=== PATIENT | male | born 1980 | race Caucasian/White ===

== ENCOUNTER 2017-06-12 17:43 | Emergency (ER) | payer BC ==
[~2017-06-12] VITALS: Ht 182.9 cm; Wt 113.4 kg
[~2017-06-12 17:43] MED LIST: CYCL10TA9 PO; DOCU-143 PO; HYDR-3812 PO; PRD20T PO; TRAM50TA2 PO
--- OUTSIDE RECORDS SUMMARY | 2017-06-12 17:49 | XMS REPORT | Clinical Summary ---
Author [facility] Address Unknown Phone Unavailable Care Team Providers Care Compressed Air Pile Driver Operator Name Role Phone PCP Unavailable Source Comments Some departments are not documenting in the electronic medical record. If you do not see the information that you expected, contact Release of Information in the Health Information Management department at [phone] for further assistance in locating additional records[facility] Allergies No Known Allergies Current Medications Prescription Sig. Disp. Refills Start End Date Status Date oxyCODONE/acetaminophen Take 1-2 Tabs by mouth. 30 Tab 08/04/19 Active (PERCOCET; ENDOCET; Max 12 tabs/day 12 ROXICET) 5/325 mg tablet Active Problems Not on file Social History Tobacco Use Types Packs/Day Years Used Date Former Smoker Cigarettes 1 8 Quit: 04/04/2009 Smokeless Tobacco: Never Used Alcohol Use Drinks/Week oz/Week Comments Yes 9 Cans of 5.4 beer Sex Assigned at Date Recorded Not on file Last Filed Vital Signs Vital Sign Reading Time Taken Blood Pressure 116/71 12/19/2012 12:30 PM CDT Pulse 56 12/19/2012 12:30 PM CDT Temperature 36.4 C (97.5 F) 12/19/2012 11:45 AM CDT Respiratory Rate - - Oxygen Saturation 92% 12/19/2012 12:30 PM CDT Inhaled Oxygen - - Concentration Weight 108.9 kg (240 lb) 12/19/2012 7:52 AM CDT Height 185.4 cm (6' 1") 12/19/2012 7:52 AM CDT Body Mass Index 31.66 12/19/2012 7:52 AM CDT Plan of Treatment Health Maintenance Due Date Last Done Comments PHYSICAL (COMPREHENSIVE) 1985 EXAM PERTUSSIS VACCINE 1989 TETANUS VACCINE 1995 INFLUENZA VACCINE 02/02/2017 Results Not on filefrom Last 3 Months
--- OUTSIDE RECORDS SUMMARY | 2017-06-12 17:50 | XMS REPORT ---
Author Author LEATHA ZULETA Organization [employer] Address Unknown Phone Unavailable Care Team Providers Care Diesel Technology Instructor Name Role Phone LEATHA ZULETA CP Unavailable Allergies, Adverse Reactions, Alerts Substance Reaction Event Type N.K.D.A. Info Not Available Non Drug Allergy Problems Problem Type Condition Code Onset Dates Condition Status Assessment Viral illness B34.9 Active Assessment Pain, unspecified R52 Active Medications No Known Medications Procedures Procedure Coding System Code Date Office Visit, Est Pt., Level 3 CPT-4 51307 October 28, 2015 STREP A ASSAY W/OPTIC CPT-4 31915 October 28, 2015 INFLUENZA ASSAY W/OPTIC CPT-4 41646 October 28, 2015 URINALYSIS, AUTO, W/O SCOPE CPT-4 45356 October 28, 2015 Vital Signs Date/Time: October 28, 2015 Temperature 98.1 F Weight 266.8 lbs Height 70 in BMI 38.28 Index Blood Pressure Diastolic 76 mmHg Blood Pressure Systolic 118 mmHg Cardiac Monitoring Heart Rate 72 bpm Results Name Result Date Reference Range Unit Abnormality Flag UA LONG DIP (IN HOUSE) ----pH 6.0 20151028 ----BLO Negative 20151028 ----Clarity Clear 20151028 ----Color Yellow 20151028 ----Exp date 20151028 ----Odor Strong 20151028 ----Lot # [id number] ----GLU Negative 20151028 ----BONITA Negative 20151028 ----ANITA Negative 20151028 ----NIT Negative 20151028 ----KET Negative 20151028 ----Lot # [id number] 20151028 ----SG >=1.030 20151028 ----URO 2.0 20151028 ----Exp date 20151028 ----Protein Negative 20151028 INFLUENZA A & B (IN HOUSE) ----Exp date 2018-01-2920151028 ----INFLUENZA A Negative 20151028 ----INFLUENZA B Negative 20151028 ----Control + 20151028 ----Lot # [id number] STREP A (IN HOUSE) ----Exp date 20151028 ----Control + 20151028 ----Lot # [id number] 20151028 ----STREP A Negative 20151028 Summary Purpose [employer] Submission
--- NOTE | 2017-06-12 18:48 | ED Chest Pain ---
General Chief Complaint: Chest Wall/Rib Pain Stated Complaint: RIB PAIN Nursing Triage Note: AMBULATORY TO ER WITH REPORTS OF RIGHT CHEST WALL PAIN SINCE WEDNESDAY. PATIENT REPORTS THAT HE HAS NO KNOWN CAUSE, OR KNOWN INJURY. DENIES PAIN WITH INSPIRATION OR PALPATION. Nursing Sepsis Screen: No Definite Risk Source: patient, family Exam Limitations: no limitations History of Present Illness Time seen by provider: 18:10 Initial Comments Here with complaint of central anterior chest discomfort and more significant right posterior chest wall pain, worse with deep breathing. No other worsening factors and no relieving factors. Intermittent shortness of breath since last week. Denies nausea or vomiting but does have some difficulties with bowel movements. States the bowel movements can be hard on some days and loose on others. Does report some blood with stool over the last 3 weeks. States sometimes there is blood without stool. Timing/Duration: 3-4 days Severity/Quality: moderate, aching Location: central Radiation: back Activities at Onset: none Prior CP/Workup: no prior chest pain ASA po SONOGRAM TECHNICIAN: No NTG SL SONOGRAM TECHNICIAN: No Associated Symptoms: No abdominal pain, No fatigue, No nausea/vomiting, shortness of breath, No weakness Allergies and Home Medications Allergies Coded Allergies: No Known Drug Allergies (Unverified , 03/06/16) Home Medications No Active Prescriptions or Reported Meds Review of Systems Constitutional: see HPI, No chills, No fever EENTM: No Symptoms Reported Respiratory: See HPI, Cough, Shortness of Air Cardiovascular: Chest Pain, Denies Edema Gastrointestinal: Constipated, Denies Nausea, Denies Vomiting Genitourinary: No Symptoms Reported Musculoskeletal: see HPI Skin: no symptoms reported Psychiatric/Neurological: No Symptoms Reported All Other Systems Reviewed Negative Unless Noted: Yes Past Swrrkrn-Yemote-Wdoalp Hx Patient Social History Alcohol Use: Occasionally Uses Number of Drinks Today: AA Alcohol Beverage of Choice: Beer Recreational Drug Use: No Smoking Status: Former Smoker Type Used: Cigarettes Former Smoker, Quit: Mar 06, 2011 2nd Hand Smoke Exposure: No Recent Foreign Travel: No Contact w/Someone Who Travel: No Recent Infectious Disease Expo: No Recent Hopitalizations: No Physical Abuse: No Sexual Abuse: No Mistreated: No Fear: No Immunizations Up To Date Tetanus Booster (TDap): Unknown Seasonal Allergies Seasonal Allergies: No Surgeries History of Surgeries: Yes (LT ARM R/T VASCULAR INSUFFICIENCY, LEFT LEG SET, RIGHT SHOULDER) Surgeries: Vascular Surgery Respiratory History of Respiratory Disorde: No Cardiovascular History of Cardiac Disorders: No Neurological History of Neurological Disord: Yes (numbness lt anterior thigh x12 years & rt 3-5 fingers for "years") Reproductive System Hx Reproductive Disorders: No Sexually Transmitted Disease: No HIV/AIDS: No Gastrointestinal History of Gastrointestinal Di: Yes (UMBILICAL HERNIA SURERY) Gastrointestinal Disorders: Gastroesophageal Reflux Musculoskeletal History of Musculoskeletal Dis: No Endocrine History of Endocrine Disorders: No HEENT Loss of Vision: Denies Hearing Impairment: Denies Cancer History of Cancer: No Psychosocial History of Psychiatric Problem: No Suicide Risk Score: 0 Integumentary History of Skin or Integumenta: No Blood Transfusions History of Blood Disorders: No Adverse Reaction to a Blood Tr: No (N/A) Reviewed Nursing Assessment Reviewed/Agree w Nursing PMH: Yes Family Medical History Significant Family History: No Pertinent Family Hx Family Medial History: Patient reports no known family medical history. Physical Exam Vital Signs Vital Sign - Last 12Hours 06/12/17 18:13 Temp 98.4 Pulse 77 Resp 18 B/P (MAP) 141/89 (106) Pulse Ox 96 O2 Delivery Room Air Capillary Refill : Less Than 3 Seconds General Appearance: No Apparent Distress, WD/WN HEENT: PERRL/EOMI, Pharynx Normal Neck: Non Tender, Supple Respiratory: Lungs Clear, Normal Breath Sounds Cardiovascular: Regular Rate, Rhythm, No Murmur Gastrointestinal: Non Tender, Soft Genital/Rectal: Normal Rectal Exam, Heme Negative Stool Extremity: Normal Inspection, Normal Range of Motion, Non Tender, No Calf Tenderness Neurologic/Psychiatric: Alert, Oriented x3, No Motor/Sensory Deficits Skin: Normal Color, Warm/Dry Progress/Results/Core Measures Results/Orders Lab Results Laboratory Tests Test 06/12/17 18:40 Range/Units White Blood Count 5.4 4.3-11.0 10^3/uL Red Blood Count 4.90 4.35-5.85 10^6/uL Hemoglobin 15.5 13.3-17.7 G/DL Hematocrit 46 40-54 % Mean Corpuscular Volume 93 80-99 FL Mean Corpuscular Hemoglobin 32 25-34 PG Mean Corpuscular Hemoglobin Concent 34 32-36 G/DL Red Cell Distribution Width 12.7 10.0-14.5 % Platelet Count 220 130-400 10^3/uL Mean Platelet Volume 10.0 7.4-10.4 FL Neutrophils (%) (Auto) 52 42-75 % Lymphocytes (%) (Auto) 35 12-44 % Monocytes (%) (Auto) 7 0-12 % Eosinophils (%) (Auto) 5 0-10 % Basophils (%) (Auto) 0 0-10 % Neutrophils # (Auto) 2.8 1.8-7.8 X 10^3 Lymphocytes # (Auto) 1.9 1.0-4.0 X 10^3 Monocytes # (Auto) 0.4 0.0-1.0 X 10^3 Eosinophils # (Auto) 0.3 0.0-0.3 10^3/uL Basophils # (Auto) 0.0 0.0-0.1 10^3/uL D-Dimer 0.29 0.00-0.49 UG/ML Sodium Level 142 135-145 MMOL/L Potassium Level 4.1 3.6-5.0 MMOL/L Chloride Level 105 98-107 MMOL/L Carbon Dioxide Level 27 21-32 MMOL/L Anion Gap 10 5-14 MMOL/L Blood Urea Nitrogen 9 7-18 MG/DL Creatinine 1.05 0.60-1.30 MG/DL Estimat Glomerular Filtration Rate > 60 BUN/Creatinine Ratio 9 Glucose Level 96 70-105 MG/DL Calcium Level 9.7 8.5-10.1 MG/DL Total Bilirubin 0.7 0.1-1.0 MG/DL Aspartate Amino Transf (AST/SGOT) 41 H 5-34 U/L Alanine Aminotransferase (ALT/SGPT) 55 0-55 U/L Alkaline Phosphatase 77 40-136 U/L Troponin I < 0.30 <0.30 NG/ML C-Reactive Protein High Sensitivity 0.16 0.00-0.50 MG/DL Total Protein 7.6 6.4-8.2 GM/DL Albumin 4.2 3.2-4.5 GM/DL My Orders Orders - JAYDEN MOJICA MD Continuous Ekg Monitoring (06/12/17 18:26) Ekg Tracing (06/12/17 18:26) Cbc With Automated Diff (06/12/17 18:26) Comprehensive Metabolic Panel (06/12/17 18:26) Hs C Reactive Protein (06/12/17 18:26) Troponin I (06/12/17 18:26) Fibrin Degradation Products (06/12/17 18:26) Saline Lock/Iv-Start (06/12/17 18:26) Chest Pa/Lat (2 View) (06/12/17 18:26) Ketorolac Injection (Toradol Injection) (06/12/17 20:21) Fecal Occult Bedside (06/12/17 20:33) Vital Signs/I&O Vital Sign - Last 12Hours 06/12/17 18:13 Temp 98.4 Pulse 77 Resp 18 B/P (MAP) 141/89 (106) Pulse Ox 96 O2 Delivery Room Air Blood Pressure Mean: 106 Progress Note : Progress Note Seen and evaluated. IV, labs, chest x-ray, EKG ordered. Monitor patient. Toradol 30 mg IV for pain. 2051: Chest x-ray does not show any significant findings and labs are negative. Hemoccult stool was negative. No obvious mass noted on exam. Discharged home with return precautions. Patient verbalize understanding instructions and agreement with plan. ECG Initial ECG Impression Date: Jun 12, 2017 Initial ECG Impression Time: 18:31 Initial ECG Rate: 69 Initial ECG Rhythm: Normal Sinus Comment Sinus rhythm with normal axis. No evidence of ST elevation IN. No previous available for comparison. Interpreted by me. T waves flat in the inferior and lateral leads. Departure Impression Impression: Primary Impression: Chest wall pain Disposition: 01 HOME, SELF-CARE Condition: Improved Departure-Patient Inst. Decision time for Depature: 20:55 Referrals: JERICHO PASTRANA MD NO,LOCAL PHYSICIAN (PCP) Primary Care Physician TAYLA SO MD Patient Instructions: Chest Pain (DC) Add. Discharge Instructions: All discharge instructions reviewed with patient and/or family. Voiced understanding. You may take ibuprofen 800 mg every 8 hours as needed for pain. You may take Tylenol 1000 mg every 8 hours as needed for pain. You may use aybd-gfe-oihttig preparations such as icy hot with lidocaine, Aspercreme with lidocaine or salonpas with lidocaine per package directions. Return for worse pain, fever, vomiting, weakness, breathing problems or other concerns as needed. Follow-up with for recheck and further evaluation. You may use the doctors listed or one of your choosing. Scripts No Active Prescriptions or Reported Meds JAYDEN MOJICA MD Jun 12, 2017 18:48
[2017-06-12 18:50] LABS: BASOPHILS % (AUTO) 0 % (0-10); EOSINOPHILS # (AUTO) 0.3 10^3/uL (0.0-0.3); EOSINOPHILS % (AUTO) 5 % (0-10); LYMPHOCYTES # (AUTO) 1.9 X 10^3 (1.0-4.0); LYMPHOCYTES % (AUTO) 35 % (12-44); MEAN CORPUSCULAR HEMOGLOBIN 32 PG (25-34); MEAN CORPUSCULAR HGB CONC 34 G/DL (32-36); MEAN CORPUSCULAR VOLUME 93 FL (80-99); MONOCYTES # (AUTO) 0.4 X 10^3 (0.0-1.0); MONOCYTES % (AUTO) 7 % (0-12); NEUTROPHILS # (AUTO) 2.8 X 10^3 (1.8-7.8); NEUTROPHILS % (AUTO) 52 % (42-75); PLATELET COUNT 220 10^3/uL (130-400); RED CELL DISTRIBUTION WIDTH 12.7 % (10.0-14.5); WHITE BLOOD COUNT 5.4 10^3/uL (4.3-11.0)
[2017-06-12 19:06] LABS: ALANINE AMINOTRANSFERASE 55 U/L (0-55); ALBUMIN 4.2 GM/DL (3.2-4.5); ANION GAP 10 MMOL/L (5-14); ASPARTATE AMINO TRANSFERASE 41 U/L (5-34); BILIRUBIN,TOTAL 0.7 MG/DL (0.1-1.0); BLOOD UREA NITROGEN 9 MG/DL (7-18); BUN/CREATININE RATIO 9; CALCIUM 9.7 MG/DL (8.5-10.1); CARBON DIOXIDE 27 MMOL/L (21-32); CHLORIDE 105 MMOL/L (98-107); CREATININE SERUM 1.05 MG/DL (0.60-1.30); GFR ESTIMATED > 60; GLUCOSE 96 MG/DL (70-105); POTASSIUM 4.1 MMOL/L (3.6-5.0); SODIUM 142 MMOL/L (135-145); TOTAL PROTEIN 7.6 GM/DL (6.4-8.2); hs C REACTIVE PROTEIN 0.16 MG/DL (0.00-0.50)
[2017-06-12 19:12] LABS: TROPONIN I < 0.30 NG/ML (<0.30)
[2017-06-12] MEDS ORDERED: KETOROLAC 30 MG/ML VIAL IVP STA (20:21)
[2017-06-12 21:07] VITALS: BP 121/71
--- NOTE | 2017-06-12 23:12 | Diagnostic Imaging Report ---
Patient History: Right chest wall pain for 3 days. No known injury. Technique: 2 views of the chest Comparison: None FINDINGS: Lung volumes are normal. No focal consolidation seen. No pleural effusion or pneumothorax is identified. The cardiomediastinal silhouette is normal in size and contour. The osseous structures demonstrate no acute abnormality. IMPRESSION: No acute pulmonary abnormality seen. No displaced rib fractures identified. Dictated by: Dictated on workstation # [id number]
== END 2017-06-12 21:07 | disposition home or self-care (01) ==
LOC: EDUNIT# 17:43 → ER 17:45
DX: R07.89 Other chest pain (principal); K21.9 Gastro-esophageal reflux disease without esophagitis; Z98.890 Other specified postprocedural states; Z87.891 Personal history of nicotine dependence
CPT/HCPCS: 36415; 71020; 80053; 84484; 85025; 85379; 86141

== ENCOUNTER 2017-06-14 15:12 | Emergency (ER) | payer BC ==
[~2017-06-14] VITALS: Ht 182.9 cm; Wt 113.4 kg
--- NOTE | 2017-06-14 15:21 | ED Chest Pain ---
General Stated Complaint: CHEST PAIN Source: patient Exam Limitations: no limitations History of Present Illness Time seen by provider: 15:20 Initial Comments To ER with intense squeezing epigastric/sternal/right sternal border chest pain that began while he was sitting on the couch 20 minutes prior to arrival. He was also here in the emergency room 2 days ago for pain beneath the right shoulder blade without significant findings and was told this was musculoskeletal. Has no history of heart disease. Timing/Duration: constant Severity/Quality: moderate Location: central Radiation: no radiation Activities at Onset: none ASA po BONE CRUSHER: No NTG SL BONE CRUSHER: No Allergies and Home Medications Allergies Coded Allergies: No Known Drug Allergies (Unverified , 03/06/16) Home Medications Acetaminophen with Codeine 1 Each Tablet, (Reported) Review of Systems Constitutional: see HPI, No chills, No fever EENTM: No Symptoms Reported Respiratory: See HPI, Cough, Shortness of Air, SOA With Exertion, SOA at Rest Cardiovascular: See HPI, Chest Pain Gastrointestinal: See HPI, Abdominal Pain Genitourinary: No Symptoms Reported Musculoskeletal: no symptoms reported Skin: no symptoms reported Psychiatric/Neurological: No Symptoms Reported Endocrine: No Symptoms Reported Hematologic/Lymphatic: No Symptoms Reported Past Puuaynu-Nfslzv-Cicdnq Hx Patient Social History Alcohol Beverage of Choice: Beer Type Used: Cigarettes Former Smoker, Quit: Mar 06, 2011 2nd Hand Smoke Exposure: No Recent Foreign Travel: No Contact w/Someone Who Travel: No Recent Hopitalizations: No Immunizations Up To Date Tetanus Booster (TDap): Unknown Seasonal Allergies Seasonal Allergies: No Surgeries History of Surgeries: Yes (LT ARM R/T VASCULAR INSUFFICIENCY, LEFT LEG SET, RIGHT SHOULDER) Surgeries: Vascular Surgery Respiratory History of Respiratory Disorde: No Cardiovascular History of Cardiac Disorders: No Neurological History of Neurological Disord: Yes (numbness lt anterior thigh x12 years & rt 3-5 fingers for "years") Reproductive System Hx Reproductive Disorders: No Sexually Transmitted Disease: No HIV/AIDS: No Gastrointestinal History of Gastrointestinal Di: Yes (UMBILICAL HERNIA SURERY) Gastrointestinal Disorders: Gastroesophageal Reflux Musculoskeletal History of Musculoskeletal Dis: No Endocrine History of Endocrine Disorders: No HEENT Loss of Vision: Denies Hearing Impairment: Denies Cancer History of Cancer: No Psychosocial History of Psychiatric Problem: No Integumentary History of Skin or Integumenta: No Blood Transfusions History of Blood Disorders: No Adverse Reaction to a Blood Tr: No (N/A) Family Medical History Significant Family History: No Pertinent Family Hx Family Medial History: Patient reports no known family medical history. Physical Exam Vital Signs Vital Sign - Last 12Hours 06/14/17 15:24 Temp 98.1 Pulse 83 Resp 24 B/P (MAP) 153/98 (116) Pulse Ox 98 O2 Delivery Room Air Capillary Refill : General Appearance: No Apparent Distress, WD/WN HEENT: PERRL/EOMI, TMs Normal Neck: Full Range of Motion, Normal Inspection Respiratory: Lungs Clear, Normal Breath Sounds, No Accessory Muscle Use, No Respiratory Distress Cardiovascular: Regular Rate, Rhythm, Normal Peripheral Pulses Gastrointestinal: Normal Bowel Sounds, Non Tender, Soft Extremity: Normal Capillary Refill, Normal Inspection Neurologic/Psychiatric: Alert, Oriented x3, No Motor/Sensory Deficits Skin: Normal Color, Warm/Dry Progress/Results/Core Measures Results/Orders Lab Results Laboratory Tests Test 06/14/17 15:25 Range/Units White Blood Count 6.5 4.3-11.0 10^3/uL Red Blood Count 4.82 4.35-5.85 10^6/uL Hemoglobin 15.4 13.3-17.7 G/DL Hematocrit 45 40-54 % Mean Corpuscular Volume 93 80-99 FL Mean Corpuscular Hemoglobin 32 25-34 PG Mean Corpuscular Hemoglobin Concent 34 32-36 G/DL Red Cell Distribution Width 12.7 10.0-14.5 % Platelet Count 217 130-400 10^3/uL Mean Platelet Volume 9.8 7.4-10.4 FL Neutrophils (%) (Auto) 50 42-75 % Lymphocytes (%) (Auto) 39 12-44 % Monocytes (%) (Auto) 7 0-12 % Eosinophils (%) (Auto) 3 0-10 % Basophils (%) (Auto) 0 0-10 % Neutrophils # (Auto) 3.3 1.8-7.8 X 10^3 Lymphocytes # (Auto) 2.5 1.0-4.0 X 10^3 Monocytes # (Auto) 0.4 0.0-1.0 X 10^3 Eosinophils # (Auto) 0.2 0.0-0.3 10^3/uL Basophils # (Auto) 0.0 0.0-0.1 10^3/uL Prothrombin Time 12.1 L 12.2-14.7 SEC INR Comment 0.9 0.8-1.4 Activated Partial Thromboplast Time 27 24-35 SEC Sodium Level 142 135-145 MMOL/L Potassium Level 3.2 L 3.6-5.0 MMOL/L Chloride Level 105 98-107 MMOL/L Carbon Dioxide Level 28 21-32 MMOL/L Anion Gap 9 5-14 MMOL/L Blood Urea Nitrogen 9 7-18 MG/DL Creatinine 1.03 0.60-1.30 MG/DL Estimat Glomerular Filtration Rate > 60 BUN/Creatinine Ratio 9 Glucose Level 104 70-105 MG/DL Calcium Level 9.9 8.5-10.1 MG/DL Magnesium Level 2.1 1.8-2.4 MG/DL Total Bilirubin 1.2 H 0.1-1.0 MG/DL Aspartate Amino Transf (AST/SGOT) 67 H 5-34 U/L Alanine Aminotransferase (ALT/SGPT) 74 H 0-55 U/L Alkaline Phosphatase 82 40-136 U/L Myoglobin 50.4 10.0-92.0 NG/ML Troponin I < 0.30 <0.30 NG/ML Total Protein 7.7 6.4-8.2 GM/DL Albumin 4.3 3.2-4.5 GM/DL Lipase 15 8-78 U/L Serum Alcohol < 10 <10 MG/DL My Orders Orders - COBY WALDEN APRN Cbc With Automated Diff (06/14/17 15:18) Magnesium (06/14/17 15:18) Chest 1 View, Ap/Pa Only (06/14/17 15:18) Ekg Tracing (06/14/17 15:18) Cardiac Profile 1 (06/14/17 15:18) Comprehensive Metabolic Panel (06/14/17 15:18) Myoglobin Serum (06/14/17 15:18) Protime With Inr (06/14/17 15:18) Partial Thromboplastin Time (06/14/17 15:18) O2 (06/14/17 15:18) Monitor-Rhythm Ecg Trace Only (06/14/17 15:18) Lipid Panel (06/15/17 06:00) Aspirin Chewable Tablet (Baby Aspirin Ch (06/14/17 15:30) Saline Lock/Iv-Start (06/14/17 15:18) Antacid Suspension (Mylanta Suspension (06/14/17 15:30) Lidocaine 2% Viscous 15 Ml (Xylocaine Vi (06/14/17 15:30) Ua Culture If Indicated (06/14/17 15:55) Drug Screen Stat (Urine) (06/14/17 15:55) Lipase (06/14/17 15:57) Iohexol Injection (Omnipaque 350 Mg/Ml 1 (06/14/17 16:00) Sodium Chloride Flush (Catheter Flush Sy (06/14/17 16:00) Ns (Ivpb) (Sodium Chloride 0.9% Ivpb Bag (06/14/17 16:00) Ct Angio Chest/Abd W (06/14/17 15:59) Iohexol Injection (Omnipaque 350 Mg/Ml 1 (06/14/17 16:15) Ns (Ivpb) (Sodium Chloride 0.9% Ivpb Bag (06/14/17 16:15) Alcohol (06/14/17 16:52) Medications Given in ED Current Medications Medications Dose Ordered Sig/Arron Route Start Time Stop Time Status Last Admin Dose Admin Al Hydrox/Mg Hydrox/Simethicone 30 ml ONCE ONCE PO 06/14/17 15:30 06/14/17 15:31 DC 06/14/17 15:38 30 ML Aspirin 324 mg ONCE ONCE PO 06/14/17 15:30 06/14/17 15:31 DC 06/14/17 15:37 324 MG Iohexol 125 ml ONCE ONCE IV 06/14/17 16:00 06/14/17 16:01 DC 06/14/17 16:23 150 ML Lidocaine HCl 15 ml ONCE ONCE PO 06/14/17 15:30 06/14/17 15:31 DC 06/14/17 15:38 15 ML Sodium Chloride 100 ml ONCE ONCE IV 06/14/17 16:00 06/14/17 16:01 DC 06/14/17 16:23 100 ML Vital Signs/I&O Vital Sign - Last 12Hours 06/14/17 06/14/17 15:24 15:24 Temp 98.1 Pulse 83 Resp 24 B/P (MAP) 153/98 (116) Pulse Ox 98 O2 Delivery Room Air Diagnostic Imaging Diagonstic Imaging: CT Comments NAME: JOSH GILLIS [facility] REC#: [id number] PT STATUS: REG ER : 1980 PHYSICIAN: COBY WALDEN APRN ADMIT DATE: 06/14/17/ER Draft Date of Exam:06/14/17 CT ANGIO CHEST/ABD W PROCEDURE: CT angiography of the abdomen and chest with and without contrast. TECHNIQUE: After intravenous administration of contrast, thin section axial CT angiography of the abdomen and chest were obtained. Multiple MIP reformats were provided. INDICATION: Chest pain. Shortness of breath. Right-sided abdominal pain. CONTRAST: 150 mL of Omnipaque 350 was administered intravenously. FINDINGS: CTA CHEST: The pulmonary arteries are well opacified with no filling defects to suggest pulmonary embolism. The thoracic aorta is normal in caliber. There is no mediastinal mass. No significant lymphadenopathy in the mediastinum or elaine. No significant lymphadenopathy in the axilla. The lungs demonstrate no significant consolidation, mass, or suspicious nodule. No significant pleural or pericardial effusion is seen. The osseous structures appear grossly unremarkable. CT ABDOMEN: The liver demonstrates mild intrahepatic biliary dilatation. Cholecystectomy clips are seen. The CBD is 1.3 cm in caliber. There is a 3 mm calcification seen near the ampulla of Vater, suggestive of a distal CBD stone. The spleen is not enlarged. The adrenal glands and pancreas appear unremarkable. The kidneys have symmetric enhancement . There is no hydronephrosis. The abdominal aorta is normal in caliber. No periaortic significantly enlarged lymph node is seen. No fluid collection in the abdomen is identified. IMPRESSION: CTA CHEST: No PE or aortic dissection. CT ABDOMEN: Mild dilatation of the intra and extrahepatic bile ducts with a 3 mm calcified stone appears to be present at the ampulla of Vater level. ERCP evaluation is recommended. The findings were discussed with Coby Walden, the ER physician commercial lines account assistant taking care of the patient at the time of dictation. Dictated on workstation # [id number] Dict: 06/14/17 165 Trans: 06/14/17 1705 [id number] Interpreted by: BALAJI DESAI MD Electronically signed by: Departure Communication (Admissions) Progress Notes 1557-PAIN DOWN TO 4 OUT OF 10, WAS 910. THIS FOLLOWS ADMINISTRATION OF GI COCKTAIL 1713- I discussed the CT findings and lab findings with Dr. Mcdonough from gastroenterology at [facility]. He will see the patient tomorrow for ERCP. Patient should present to the admitted and discharged lounge at 130 or 2 p.m. He should have a clear liquid breakfast, no lunch. I will prophylactically put him on Cipro and Flagyl Impression Impression: Primary Impression: Choledocholithiasis with obstruction Disposition: 01 HOME, SELF-CARE Condition: Stable Departure-Patient Inst. Decision time for Depature: 17:13 Referrals: NO,LOCAL PHYSICIAN (PCP/Family) Primary Care Physician Patient Instructions: NO INSTRUCTIONS GIVEN Add. Discharge Instructions: 1. You may eat a light clear liquid breakfast tomorrow morning. Take the pain medication and the nausea medication as needed. Take the antibiotics as directed. Show up at the admitting lounge at [facility] tomorrow between 130 and 2 p.m. with plans to have ERCP procedure done by Dr. Baird Scripts Hydrocodone/Acetaminophen ([place] 5-325 Tablet) 1 Each Tablet 1 EACH PO Q6H Y for PAIN-MODERATE TO SEVERE, #10 TAB Prov: COBY WALDEN APRN 06/14/17 Ondansetron (Zofran Odt) 8 Mg Tab.rapdis 8 MG PO Q6H, #10 TAB Prov: COBY WALDEN APRN 06/14/17 Metronidazole (Flagyl) 500 Mg Tablet 500 MG PO TID, #15 TAB Prov: COBY WALDEN APRN 06/14/17 Ciprofloxacin HCl (Cipro) 500 Mg Tablet 500 MG PO BID, #10 TAB Prov: COBY WALDEN APRN 06/14/17 COBY WALDEN APRN Jun 14, 2017 15:21
[2017-06-14] MEDS ORDERED: ASPIRIN 81 MG CHEW (CHILDREN'S ASA) PO ONE (15:30)
[2017-06-14] MEDS ORDERED: ANTACID SUSP 30 ML UDC (MYLANTA) PO ONE (15:30)
[2017-06-14] MEDS ORDERED: LIDOCAINE 2% VISCOUS 15 ML UDC PO ONE (15:30)
[2017-06-14] MEDS ORDERED: ACET1TAB43 (15:32)
[2017-06-14 15:35] LABS: BASOPHILS % (AUTO) 0 % (0-10); EOSINOPHILS # (AUTO) 0.2 10^3/uL (0.0-0.3); EOSINOPHILS % (AUTO) 3 % (0-10); LYMPHOCYTES # (AUTO) 2.5 X 10^3 (1.0-4.0); LYMPHOCYTES % (AUTO) 39 % (12-44); MEAN CORPUSCULAR HEMOGLOBIN 32 PG (25-34); MEAN CORPUSCULAR HGB CONC 34 G/DL (32-36); MEAN CORPUSCULAR VOLUME 93 FL (80-99); MEAN PLATELET VOLUME 9.8 FL (7.4-10.4); MONOCYTES # (AUTO) 0.4 X 10^3 (0.0-1.0); MONOCYTES % (AUTO) 7 % (0-12); NEUTROPHILS # (AUTO) 3.3 X 10^3 (1.8-7.8); NEUTROPHILS % (AUTO) 50 % (42-75); PLATELET COUNT 217 10^3/uL (130-400); RED BLOOD COUNT 4.82 10^6/uL (4.35-5.85); RED CELL DISTRIBUTION WIDTH 12.7 % (10.0-14.5); WHITE BLOOD COUNT 6.5 10^3/uL (4.3-11.0)
[2017-06-14 15:49] LABS: INR 0.9 (0.8-1.4); PROTHROMBIN TIME PATIENT 12.1 SEC (12.2-14.7)
[2017-06-14 15:57] LABS: ALANINE AMINOTRANSFERASE 74 U/L (0-55); ALBUMIN 4.3 GM/DL (3.2-4.5); ANION GAP 9 MMOL/L (5-14); ASPARTATE AMINO TRANSFERASE 67 U/L (5-34); BILIRUBIN,TOTAL 1.2 MG/DL (0.1-1.0); BLOOD UREA NITROGEN 9 MG/DL (7-18); BUN/CREATININE RATIO 9; CALCIUM 9.9 MG/DL (8.5-10.1); CARBON DIOXIDE 28 MMOL/L (21-32); CHLORIDE 105 MMOL/L (98-107); CREATININE SERUM 1.03 MG/DL (0.60-1.30); GFR ESTIMATED > 60; GLUCOSE 104 MG/DL (70-105); MAGNESIUM 2.1 MG/DL (1.8-2.4); POTASSIUM 3.2 MMOL/L (3.6-5.0); SODIUM 142 MMOL/L (135-145); TOTAL PROTEIN 7.7 GM/DL (6.4-8.2)
[2017-06-14] MEDS ORDERED: IOHEXOL 350 MG/ML 150 ML (OMNIPAQUE 350) VIAL IV ONE ×2 (16:00→16:15)
[2017-06-14] MEDS ORDERED: NS 100 ML (IVPB) BAG IV ONE ×2 (16:00→16:15)
[2017-06-14] MEDS ORDERED: CATHETER FLUSH 10 ML SYR IV PRN (16:00)
[2017-06-14 16:03] LABS: MYOGLOBIN SERUM 50.4 NG/ML (10.0-92.0)
--- NOTE | 2017-06-14 16:08 | Diagnostic Imaging Report ---
Portable upright radiograph of the chest. INDICATION: Chest pain. FINDINGS: The lungs are clear. The heart size is borderline enlarged. No effusion or pneumothorax. The mediastinum and elaine appear unremarkable. IMPRESSION: Borderline cardiac size. Clear lungs. Dictated by: Dictated on workstation # [id number]
--- NOTE | 2017-06-14 17:06 | Diagnostic Imaging Report ---
PROCEDURE: CT angiography of the abdomen and chest with and without contrast. TECHNIQUE: After intravenous administration of contrast, thin section axial CT angiography of the abdomen and chest were obtained. Multiple MIP reformats were provided. INDICATION: Chest pain. Shortness of breath. Right-sided abdominal pain. CONTRAST: 150 mL of Omnipaque 350 was administered intravenously. FINDINGS: CTA CHEST: The pulmonary arteries are well opacified with no filling defects to suggest pulmonary embolism. The thoracic aorta is normal in caliber. There is no mediastinal mass. No significant lymphadenopathy in the mediastinum or elaine. No significant lymphadenopathy in the axilla. The lungs demonstrate no significant consolidation, mass, or suspicious nodule. No significant pleural or pericardial effusion is seen. The osseous structures appear grossly unremarkable. CT ABDOMEN: The liver demonstrates mild intrahepatic biliary dilatation. Cholecystectomy clips are seen. The CBD is 1.3 cm in caliber. There is a 3 mm calcification seen near the ampulla of Vater, suggestive of a distal CBD stone. The spleen is not enlarged. The adrenal glands and pancreas appear unremarkable. The kidneys have symmetric enhancement . There is no hydronephrosis. The abdominal aorta is normal in caliber. No periaortic significantly enlarged lymph node is seen. No fluid collection in the abdomen is identified. IMPRESSION: CTA CHEST: No PE or aortic dissection. CT ABDOMEN: Mild dilatation of the intra and extrahepatic bile ducts with a 3 mm calcified stone appears to be present at the ampulla of Vater level. ERCP evaluation is recommended. The findings were discussed with Oseas Walden, the ER physician assistant professor of communication taking care of the patient at the time of dictation. Dictated by: Dictated on workstation # [id number]
[2017-06-14] MEDS ORDERED: CIPR-225 PO (17:16)
[2017-06-14] MEDS ORDERED: METR500T PO (17:16)
[2017-06-14] MEDS ORDERED: ONDA8TAB9 PO (17:16)
[2017-06-14] MEDS ORDERED: HYDR-757 PO (17:16)
[2017-06-14 17:32] VITALS: BP 158/93
== END 2017-06-14 17:32 | disposition home or self-care (01) ==
LOC: EDUNIT# 15:12 → ER 15:13
DX: K80.51 Calculus of bile duct without cholangitis or cholecystitis with obstruction (principal); K21.9 Gastro-esophageal reflux disease without esophagitis; Z87.891 Personal history of nicotine dependence; Z98.890 Other specified postprocedural states
CPT/HCPCS: 36415; 71010; 71275; 74175; 80053; 80320; 83690; 83735; 83874; 84484; 85025; 85610; 85730; 93005; 93041

== ENCOUNTER 2019-05-20 17:59 | Emergency (ER) | payer BC ==
[~2019-05-20] VITALS: Ht 182.9 cm; Wt 117.5 kg
[~2019-05-20 17:59] MED LIST changes: +ACET1TAB43; +ACHD5005 PO; +CIPR-225 PO; -HYDR-3812 PO; +HYDR-4226 PO; +METR500T PO; +ONDA8TAB9 PO
[2019-05-20] MEDS ORDERED: HYDROcodone/APAP 5 MG/325 MG (LORTAB) TAB PO ONE (18:30)
--- NOTE | 2019-05-20 18:57 | Diagnostic Imaging Report ---
EXAMINATION: Right foot at 6:37 PM INDICATION: Foot pain 3 views were obtained. There are no prior studies available for comparison. There is no fracture, dislocation or acute bony abnormality identified. The Lisfranc joint seems well maintained. There is a minute calcaneal spur. The soft tissues are unremarkable. IMPRESSION: There is no evidence for an acute bony abnormality. Dictated by: Dictated on workstation # [id number]
--- NOTE | 2019-05-20 19:12 | ED Lower Extremity ---
General Chief Complaint: Lower Extremity Stated Complaint: INJ RT FOOT Nursing Triage Note: PT AMBULATE TO TRIAGE WITH C/O RIGHT FOOT INJURY. PT WAS TRYING TO PLAY KICKBALL WITH CHILD AND KICKED THE CONCRETE INSTEAD OF THE BALL. PT NOW HAS C/O PAIN THE THE AFFECTED FOOT. Nursing Sepsis Screen: No Definite Risk Source: patient Exam Limitations: no limitations History of Present Illness Date Seen by Provider: May 20, 2019 Time Seen by Provider: 18:15 Initial Comments This 39-year-old gentleman presents to the emergency room with a right great toe injury. He was playing kickball with his daughter when he caught his toe on the edge of some raised concrete. His right great toe is very tender and painful. There is a small amount of blood oozing from beneath the toenail. The incident happened shortly before presentation. Onset: just prior to arrival Allergies and Home Medications Allergies Coded Allergies: No Known Drug Allergies (Unverified , 03/06/16) Home Medications Ciprofloxacin HCl 500 Mg Tablet, 500 MG PO BID Prescribed by: COBY SANTOS on 06/14/171715 Hydrocodone Bit/Acetaminophen 1 Tab Tab, 1-2 EACH PO Q4H PRN for PAIN-MODERATE Prescribed by: RUTH DORAN on 05/20/191916 Hydrocodone/Acetaminophen 1 Each Tablet, 1 EACH PO Q6H PRN for PAIN-MODERATE TO SEVERE Prescribed by: COBY SANTOS on 06/14/171715 Metronidazole 500 Mg Tablet, 500 MG PO TID Prescribed by: COBY SANTOS on 06/14/171715 Ondansetron 8 Mg Tab.rapdis, 8 MG PO Q6H Prescribed by: COBY SANTOS on 06/14/171715 Patient Home Medication List Home Medication List Reviewed: Yes Review of Systems Constitutional: no symptoms reported Musculoskeletal: see HPI Skin: see HPI Psychiatric/Neurological: No Symptoms Reported Past Qagtnkn-Bsznla-Nrwmpk Hx Past Med/Social Hx: Reviewed Nursing Past Med/Soc Hx Patient Social History Alcohol Use: Occasionally Uses Number of Drinks Today: AA Alcohol Beverage of Choice: Beer Recreational Drug Use: No Smoking Status: Former Smoker Type Used: Cigarettes Former Smoker, Quit: Mar 06, 2011 2nd Hand Smoke Exposure: No Recent Foreign Travel: No Contact w/Someone Who Travel: No Recent Infectious Disease Expo: No Recent Hopitalizations: No Physical Abuse: No Sexual Abuse: No Mistreated: No Fear: No Immunizations Up To Date Tetanus Booster (TDap): Unknown Seasonal Allergies Seasonal Allergies: No Past Medical History Surgeries: Yes (LT ARM R/T VASCULAR INSUFFICIENCY, L LEG SET, R SHOULDER, hernia) Gallbladder, Vascular Surgery Respiratory: No Cardiac: No Neurological: Yes (numbness lt anterior thigh x12 years & rt 3-5 fingers for "years") Reproductive Disorders: No Sexually Transmitted Disease: No HIV/AIDS: No Genitourinary: No Gastrointestinal: Yes (UMBILICAL HERNIA SURERY) Gastroesophageal Reflux Musculoskeletal: No Endocrine: No HEENT: No Loss of Vision: Denies Hearing Impairment: Denies Cancer: No Psychosocial: No Integumentary: No Blood Disorders: No Adverse Reaction/Blood Tranf: No (N/A) Family Medical History Patient reports no known family medical history. No Pertinent Family Hx Physical Exam Vital Signs Vital Signs - First Documented 05/20/19 05/20/19 18:16 19:30 Temp 36.8 Pulse 84 Resp 18 B/P (MAP) 112/72 (85) Pulse Ox 100 O2 Delivery Room Air Capillary Refill : Less Than 3 Seconds Height, Weight, BMI Height: 6'0" Weight: 250lbs. 0.0oz. 113.819323vn; 35.00 BMI Method:Stated General Appearance: WD/WN, no apparent distress HEENT: normal ENT inspection Cardiovascular: regular rate, rhythm, no edema, no murmur Respiratory: lungs clear, normal breath sounds, no respiratory distress Ankles: right ankle non-tender, right ankle normal inspection, right ankle no evidence of injury Feet: right foot other (there is swelling and ecchymosis of the great toe. There is dark blood beneath the toenail and blood oozing from beneath the toenail distally. The entire great toe and and nearby distal foot is quite tender. There is no break in the skin. Distal sensation and capillary refill is intact) Neurologic/Psychiatric: personal lines appraiser II-XII nml as tested, alert, normal mood/affect, oriented x 3 Skin: warm/dry, ecchymosis Progress/Results/Core Measures Results/Orders My Orders Orders - RUTH KOWALSKI MD Foot, Right, 3 View (05/20/19 18:24) Hydrocodone/Apap 5/325 Tablet (Lortab 5 (05/20/19 18:30) Sulfamethoxazole/Trimet Ds Tab (Bactrim (05/20/19 19:15) Medications Given in ED Current Medications Medications Dose Ordered Sig/Arron Route Start Time Stop Time Status Last Admin Dose Admin Acetaminophen/ Hydrocodone Bitart 1 tab ONCE ONCE PO 05/20/19 18:30 05/20/19 18:31 DC 05/20/19 18:53 1 TAB Vital Signs/I&O 05/20/19 05/20/19 18:16 19:30 Temp 36.8 Pulse 84 84 Resp 18 19 B/P (MAP) 112/72 (85) 148/89 Pulse Ox 100 O2 Delivery Room Air Room Air Blood Pressure Mean: 85 POS Progress Progress Note : Progress Note Patient was felt to have a tuft fracture of the right great toe. Pain was treated with hydrocodone. A postop shoe was dispensed. The tissue stuck to the tip of the toe was removed with forceps after soaking with saline. The toe was then rinsed. No injuries to the skin or identified. There was blood oozing from beneath the tip of the toenail. Trepanation was not felt necessary as blood was oozing out from underneath the nail. Patient has crutches at home and declined dispensing crutches here. Single dose of Bactrim was given as it was difficult to clean the toe due to patient's pain. Antibiotic ointment and a dressing were applied. Diagnostic Imaging Diagonstic Imaging: Xray Plain Films/CT/US/NM/MRI: other (right foot) Comments Foot x-ray was viewed by me and discussed with the radiologist. There is possible fracture to the tuft of the great toe. We discussed the appearance of the proximal phalanx of the great toe. After discussion with Dr. Trivedi, it was determined there is not likely a fracture in that location. Departure Impression Primary Impression: Fracture of great toe Qualified Codes: S92.424A - Nondisplaced fracture of distal phalanx of right great toe, initial encounter for closed fracture Disposition: 01 HOME, SELF-CARE Condition: Improved Departure-Patient Inst. Decision time for Depature: 19:12 Referrals: NO,LOCAL PHYSICIAN (PCP) Primary Care Physician EMIL GANNON MD,RUMA Umana MD Patient Instructions: Toe Fracture (DC) Add. Discharge Instructions: Elevation, icing in 20 minute intervals, and rest should help with pain and swelling. Use the postop shoe as a splint for the next 3-4 weeks to protect the toe while it heals. Avoid use of NSAID medications such as naproxen, Aleve, ibuprofen, Advil, etc. Use your hydrocodone as prescribed to treat pain. Please be advised this medication may cause drowsiness or constipation. You may wish to use a stool softener to prevent constipation. Monitor for signs of infection such as increasing redness, puslike drainage, or fever. Return to care if you notice any of the symptoms. You may apply a gauze dressing to the wound. Antibiotic ointment will help prevent the dressing from sticking to the wound. If you are not improving as expected over the next several days, please follow- up with your primary care provider or an orthopedist for reevaluation. All discharge instructions reviewed with patient and/or family. Voiced underst anding. Scripts Hydrocodone Bit/Acetaminophen (Hydrocodone/Acetaminophen 5/325mg Tablet) 1 Tab Tab 1-2 EACH PO Q4H PRN for PAIN-MODERATE MDD 10, #30 TAB 0 Refills Prov: RUTH KOWALSKI MD 05/20/19 RUTH KOWALSKI MD May 20, 2019 19:12 POS
[2019-05-20] MEDS ORDERED: TRIM/SULFAMETH 160/800 (SEPTRA DS) TAB PO ONE (19:15)
[2019-05-20] MEDS ORDERED: ACHD5005 PO (19:17)
[2019-05-20 19:30] VITALS: BP 148/89
== END 2019-05-20 19:29 | disposition home or self-care (01) ==
LOC: EDUNIT# 17:59 → ER 18:00
DX: S92.424A Nondisplaced fracture of distal phalanx of right great toe, initial encounter for closed fracture (principal); K21.9 Gastro-esophageal reflux disease without esophagitis; Z87.891 Personal history of nicotine dependence; W22.8XXA Striking against or struck by other objects, initial encounter; Y93.6A Activity, physical games generally associated with school recess, summer camp and children
CPT/HCPCS: 73630

== ENCOUNTER 2019-12-25 14:40 | Inpatient (IN) | payer BC ==
[~2019-12-25] VITALS: Ht 185.4 cm; Wt 123.0 kg
[~2019-12-25 14:40] MED LIST changes: -TRAM50TA2 PO; +TRM50T PO
[2019-12-25] MEDS ORDERED: fentaNYL INJECTION 100 MCG/2 ML AMP IVP ONE ×2 (15:00→16:30)
[2019-12-25] MEDS ORDERED: KETOROLAC 30 MG/ML VIAL IVP ONE (15:00)
--- NOTE | 2019-12-25 15:02 | ED Abdominal Pain ---
General Stated Complaint: ABD PAIN Source of Information: Patient Exam Limitations: No Limitations History of Present Illness Date Seen by Provider: Dec 25, 2019 Time Seen by Provider: 15:00 Initial Comments To ER with reports of epigastric abdominal pain that began at 4:45 AM this morning after a bowel movement while at work. He has some intermittent nausea. No fever no chills. Timing/Duration: 12 Hours, 1-2 Days Severity/Quality: Moderate Location: Epigastric Radiation: No Radiation Associated Symptoms: Denies Symptoms Allergies and Home Medications Allergies Coded Allergies: No Known Drug Allergies (Unverified , 03/06/16) Home Medications Ciprofloxacin HCl 500 Mg Tablet, 500 MG PO BID Prescribed by: COBY SANTOS on 06/14/171715 Hydrocodone Bit/Acetaminophen 1 Tab Tab, 1-2 EACH PO Q4H PRN for PAIN-MODERATE Prescribed by: RUTH DORAN on 05/20/191916 Hydrocodone/Acetaminophen 1 Each Tablet, 1 EACH PO Q6H PRN for PAIN-MODERATE TO SEVERE Prescribed by: COBY SANTOS on 06/14/171715 Metronidazole 500 Mg Tablet, 500 MG PO TID Prescribed by: COBY SANTOS on 06/14/171715 Ondansetron 8 Mg Tab.rapdis, 8 MG PO Q6H Prescribed by: COBY SANTOS on 06/14/171715 Patient Home Medication List Home Medication List Reviewed: Yes Review of Systems Review of Systems Constitutional: see HPI EENTM: No Symptoms Reported Cardiovascular: No Symptoms Reported Gastrointestinal: See HPI, Abdominal Pain, Nausea Genitourinary: No Symptoms Reported Musculoskeletal: no symptoms reported Skin: no symptoms reported Psychiatric/Neurological: No Symptoms Reported Endocrine: No Symptoms Reported Hematologic/Lymphatic: No Symptoms Reported Past Osjvigf-Uxxzvl-[place]hoam Hx Patient Social History Alcohol Beverage of Choice: Beer Type Used: Cigarettes Former Smoker, Quit: Mar 06, 2011 2nd Hand Smoke Exposure: No Recent Foreign Travel: No Contact w/Someone Who Travel: No Recent Hopitalizations: No Immunizations Up To Date Tetanus Booster (TDap): Unknown Seasonal Allergies Seasonal Allergies: No Past Medical History Surgeries: Yes (LT ARM R/T VASCULAR INSUFFICIENCY, L LEG SET, R SHOULDER, hernia) Gallbladder, Vascular Surgery Respiratory: No Cardiac: No Neurological: Yes (numbness lt anterior thigh x12 years & rt 3-5 fingers for "years") Reproductive Disorders: No Sexually Transmitted Disease: No HIV/AIDS: No Genitourinary: No Gastrointestinal: Yes (UMBILICAL HERNIA SURERY) Gastroesophageal Reflux Musculoskeletal: No Endocrine: No HEENT: No Loss of Vision: Denies Hearing Impairment: Denies Cancer: No Psychosocial: No Integumentary: No Blood Disorders: No Adverse Reaction/Blood Tranf: No (N/A) Family Medical History Patient reports no known family medical history. No Pertinent Family Hx Physical Exam Vital Signs Vital Signs - First Documented 12/25/19 14:53 Temp 36.8 Pulse 100 Resp 18 B/P (MAP) 113/89 (97) Pulse Ox 98 O2 Delivery Room Air Capillary Refill : Height/Weight/BMI Height: 6'0" Weight: 250lbs. 0.0oz. 113.551613ml; 35.00 BMI Method:Stated General Appearance: WD/WN, no apparent distress HEENT: PERRL/EOMI, normal ENT inspection Respiratory: no respiratory distress, no accessory muscle use Gastrointestinal: normal bowel sounds, soft, tenderness Extremities: normal range of motion, non-tender Neurologic/Psychiatric: alert, normal mood/affect, oriented x 3 Skin: normal color, warm/dry Progress/Results/Core Measures Results/Orders Lab Results Laboratory Tests Test 12/25/19 14:54 Range/Units White Blood Count 8.4 4.3-11.0 10^3/uL Red Blood Count 5.29 4.35-5.85 10^6/uL Hemoglobin 16.7 13.3-17.7 G/DL Hematocrit 49 40-54 % Mean Corpuscular Volume 93 80-99 FL Mean Corpuscular Hemoglobin 32 25-34 PG Mean Corpuscular Hemoglobin Concent 34 32-36 G/DL Red Cell Distribution Width 13.1 10.0-14.5 % Platelet Count 226 130-400 10^3/uL Mean Platelet Volume 10.0 7.4-10.4 FL Neutrophils (%) (Auto) 68 42-75 % Lymphocytes (%) (Auto) 22 12-44 % Monocytes (%) (Auto) 7 0-12 % Eosinophils (%) (Auto) 3 0-10 % Basophils (%) (Auto) 0 0-10 % Neutrophils # (Auto) 5.7 1.8-7.8 X 10^3 Lymphocytes # (Auto) 1.9 1.0-4.0 X 10^3 Monocytes # (Auto) 0.6 0.0-1.0 X 10^3 Eosinophils # (Auto) 0.3 0.0-0.3 10^3/uL Basophils # (Auto) 0.0 0.0-0.1 10^3/uL Sodium Level 141 135-145 MMOL/L Potassium Level 4.1 3.6-5.0 MMOL/L Chloride Level 104 98-107 MMOL/L Carbon Dioxide Level 26 21-32 MMOL/L Anion Gap 11 5-14 MMOL/L Blood Urea Nitrogen 10 7-18 MG/DL Creatinine 1.16 0.60-1.30 MG/DL Estimat Glomerular Filtration Rate > 60 BUN/Creatinine Ratio 9 Glucose Level 106 H 70-105 MG/DL Calcium Level 10.6 H 8.5-10.1 MG/DL Corrected Calcium 8.5-10.1 MG/DL Total Bilirubin 1.8 H 0.1-1.0 MG/DL Aspartate Amino Transf (AST/SGOT) 37 H 5-34 U/L Alanine Aminotransferase (ALT/SGPT) 67 H 0-55 U/L Alkaline Phosphatase 82 40-136 U/L Total Protein 8.4 H 6.4-8.2 GM/DL Albumin 4.7 H 3.2-4.5 GM/DL Lipase 15 8-78 U/L My Orders Orders - COBY SANTOS APRN Cbc With Automated Diff (12/25/19 14:58) Comprehensive Metabolic Panel (12/25/19 14:58) Lipase (12/25/19 14:58) Ua Culture If Indicated (12/25/19 14:58) Ed Iv/Invasive Line Start (12/25/19 14:58) Ct Abdomen/Pelvis W (12/25/19 14:58) Ketorolac Injection (Toradol Injection) (12/25/19 15:00) Fentanyl Injection (Sublimaze Injection (12/25/19 15:00) Iohexol Injection (Omnipaque 350 Mg/Ml 1 (12/25/19 15:15) Received Contrast (Hold Metformin- Contr (12/25/19 15:15) Ns (Ivpb) (Sodium Chloride 0.9% Ivpb Bag (12/25/19 15:15) Medications Given in ED Current Medications Medications Dose Ordered Sig/Arron Route Start Time Stop Time Status Last Admin Dose Admin Fentanyl Citrate 75 mcg ONCE ONCE IVP 12/25/19 15:00 12/25/19 15:01 DC 12/25/19 15:06 75 MCG Iohexol 100 ml ONCE ONCE IV 12/25/19 15:15 12/25/19 15:16 DC 12/25/19 15:26 74 ML Ketorolac Tromethamine 15 mg ONCE ONCE IVP 12/25/19 15:00 12/25/19 15:01 DC 12/25/19 15:05 15 MG Sodium Chloride 100 ml ONCE ONCE IV 12/25/19 15:15 12/25/19 15:16 DC 12/25/19 15:26 80 ML Vital Signs/I&O 12/25/19 14:53 Temp 36.8 Pulse 100 Resp 18 B/P (MAP) 113/89 (97) Pulse Ox 98 O2 Delivery Room Air Departure Communication (Admissions) Time/Spoke to Admitting Phy: 16:[address] Sanders. We'll admit observation status, small bowel follow- through in the morning, IV pain and nausea control, nasogastric tube to low intermittent wall suction. Impression Primary Impression: Small bowel obstruction Disposition: ADMITTED INPATIENT Condition: Stable Admissions Decision to Admit Reason: Admit from ER (General) Decision to Admit/Date: Dec 25, 2019 Time/Decision to Admit Time: 16:02 Departure-Patient Inst. Referrals: NO,LOCAL PHYSICIAN (PCP/Family) Primary Care Physician COBY SANTOS APRN Dec 25, 2019 15:02
[2019-12-25 15:03] LABS: BASOPHILS % (AUTO) 0 % (0-10); EOSINOPHILS # (AUTO) 0.3 10^3/uL (0.0-0.3); EOSINOPHILS % (AUTO) 3 % (0-10); HEMATOCRIT 49 % (40-54); HEMOGLOBIN 16.7 G/DL (13.3-17.7); LYMPHOCYTES # (AUTO) 1.9 X 10^3 (1.0-4.0); LYMPHOCYTES % (AUTO) 22 % (12-44); MEAN CORPUSCULAR HEMOGLOBIN 32 PG (25-34); MEAN CORPUSCULAR HGB CONC 34 G/DL (32-36); MEAN CORPUSCULAR VOLUME 93 FL (80-99); MONOCYTES # (AUTO) 0.6 X 10^3 (0.0-1.0); MONOCYTES % (AUTO) 7 % (0-12); NEUTROPHILS # (AUTO) 5.7 X 10^3 (1.8-7.8); NEUTROPHILS % (AUTO) 68 % (42-75); PLATELET COUNT 226 10^3/uL (130-400); RED CELL DISTRIBUTION WIDTH 13.1 % (10.0-14.5); WHITE BLOOD COUNT 8.4 10^3/uL (4.3-11.0)
[2019-12-25] MEDS ORDERED: HOLD METFORMIN - RECEIVED CONTRAST 20 ML VIAL IV SCH (15:15)
[2019-12-25] MEDS ORDERED: IOHEXOL 350 MG/ML 100 ML (OMNIPAQUE 350) VIAL IV ONE (15:15)
[2019-12-25] MEDS ORDERED: NS 100 ML (IVPB) BAG IV ONE (15:15)
[2019-12-25 15:21] LABS: ALBUMIN 4.7 GM/DL (3.2-4.5); CHLORIDE 104 MMOL/L (98-107); POTASSIUM 4.1 MMOL/L (3.6-5.0); SODIUM 141 MMOL/L (135-145)
[2019-12-25 15:22] LABS: CALCIUM 10.6 MG/DL (8.5-10.1)
[2019-12-25 15:23] LABS: GLUCOSE 106 MG/DL (70-105)
[2019-12-25 15:24] LABS: TOTAL PROTEIN 8.4 GM/DL (6.4-8.2)
[2019-12-25 15:25] LABS: BILIRUBIN,TOTAL 1.8 MG/DL (0.1-1.0); CARBON DIOXIDE 26 MMOL/L (21-32)
[2019-12-25 15:27] LABS: ALKALINE PHOSPHATASE 82 U/L (40-136); CREATININE SERUM 1.16 MG/DL (0.60-1.30); GFR ESTIMATED > 60
[2019-12-25 15:28] LABS: BUN/CREATININE RATIO 9
[2019-12-25 15:30] LABS: ALANINE AMINOTRANSFERASE 67 U/L (0-55); LIPASE 15 U/L (8-78)
--- NOTE | 2019-12-25 15:53 | Diagnostic Imaging Report ---
PROCEDURE: CT abdomen and pelvis with contrast. TECHNIQUE: Multiple contiguous axial images were obtained through the abdomen and pelvis after administration of intravenous contrast. Auto Exposure Controls were utilized during the CT exam to meet ALARA standards for radiation dose reduction. INDICATION: Upper and mid abdominal pain and diarrhea. CORRELATION is made with prior CT from 06/13/2016. FINDINGS: The lung bases are clear. The liver demonstrates generalized low density consistent with hepatic steatosis. No discrete liver mass is detected. The gallbladder is surgically absent. No biliary ductal dilatation is identified. The pancreas and spleen are unremarkable. No adrenal mass is identified. The kidneys are unremarkable. The aorta is nonaneurysmal. There is moderate fluid-filled distention of small bowel loops throughout the abdomen. There is focal transition in the mid abdomen anteriorly where there is abrupt caliber change with associated wall thickening and irregularity. The small bowel distal to this level appears to be decompressed. Large bowel is unremarkable. There is a small amount of free fluid in the pelvis. No free fluid in the abdomen is identified. No definite free air is detected. Bladder and prostate are unremarkable. IMPRESSION: 1. Hepatic steatosis. 2. Findings consistent with small bowel obstruction. There is focal transition in the anterior midline mid abdomen where there does appear to be some bowel wall thickening and irregularity. 3. No abscess formation or pneumoperitoneum is identified. 4. There is trace free fluid in the pelvis. Dictated by: Dictated on workstation # [id number]
--- NOTE | 2019-12-25 16:01 | NUR ---
TO ROOM REPORTS PAIN BETTER.
[2019-12-25] MEDS ORDERED: HURRICAINE EXT TUBE (BENZOCAINE) ONE (16:10)
[2019-12-25 16:15] LABS: BILIRUBIN,URINE NEGATIVE (NEGATIVE); CLARITY,URINE CLEAR; COLOR,URINE YELLOW; GLUCOSE, URINE (UA) NEGATIVE (NEGATIVE); KETONES,URINE NEGATIVE (NEGATIVE); LEUKOCYTE ESTERASE ,URINE NEGATIVE (NEGATIVE); NITRITE,URINE NEGATIVE (NEGATIVE); PH,URINE 5.5 (5-9); PROTEIN,URINE NEGATIVE (NEGATIVE)
[2019-12-25 16:27] LABS: BACTERIA,URINE TRACE /HPF; SQUAMOUS EPITHELIAL CELL,UR RARE /HPF; URINE OTHER FEW SPERM /HPF; WBC,URINE RARE /HPF
--- NOTE | 2019-12-25 16:30 | NUR ---
CXR DONE FOR NG PLACEMENT. [facility]
--- NOTE | 2019-12-25 16:39 | NUR ---
NG IN [facility] PER Lyndsay SANTOS APRN.
--- NOTE | 2019-12-25 16:47 | Diagnostic Imaging Report ---
EXAMINATION: Chest 1 view HISTORY: Tube placement COMPARISON: None available. FINDINGS: The lungs are clear without edema or pneumonia. No pleural effusion or pneumothorax. Heart size is normal. Gastric tube tip terminates in the body of the stomach. IMPRESSION: 1. Gastric tube tip terminates in the body of the stomach. Dictated by: Dictated on workstation # [id number]
[2019-12-25] MEDS ORDERED: PROMETHAZINE INJ 25 MG/ML (PHENERGAN) AMP IV PRN (17:15)
[2019-12-25] MEDS ORDERED: ONDANSETRON 4 MG/2 ML (SDV) Z0FRAN IV PRN (17:15)
[2019-12-25] MEDS ORDERED: CATHETER FLUSH 10 ML SYR IV PRN (17:15)
[2019-12-25 17:16] VITALS: BP 129/85
--- OUTSIDE RECORDS SUMMARY | 2019-12-25 17:24 | XMS REPORT ---
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 [employer] [facility] [employer] Address [address] [address] Care Team Providers Care Security Officer Name Role Phone NO, LOCAL PHYSICIAN Unavailable Unavailable LEATHA ZULETA Unavailable Unavailable NO, LOCAL PHYSICIAN Unavailable Unavailable NO, LOCAL PHYSICIAN Unavailable Unavailable MORENA HAUSER, MERCY Nye Unavailable Unavailable CORRINE TANNER Unavailable MEGHANA HAUSER, RUTH Vasquez Unavailable Unavailable NO, LOCAL PHYSICIAN PCP Unavailable Unavailable Unavailable Unavailable Unavailable Unavailable Unavailable Allergies Normalized Allergy Reported Date of Reaction(s) Care Provider Facility Allergy Type classification allergen Allergy Onset DA (7 Unclassified No Known Drug 03-06-2016 - no information [facility] Not Available sources.) Allergies MD (76479) Medications Current Medications Medication Ingredient Drug Dose Dates Status Sig Sig Care Class(es) (Normalized) (Original) Provid er augmented betamethaso Corticoster 0.5 03-29-20 Active no no no betamethaso ne oid mg/mL 18 - information information name ne 0.5 Translation 04-05-20 mg/ml s: [ 18 topical Betamethaso cream (1 ne source.) Dipropionat e Aug 0.05 %] Completed/Discontinued Medications Medication Ingredient Drug Dose Dates Status Sig Sig Care Class(es) (Normalized) (Original) Provid er acetaminoph Acetaminoph Opioid no no Acetaminophe no en 300 mg / en / Agonist informat information n With na me codeine Codeine ion Codeine phosphate Active NOT 30 mg oral APPLICABLE tablet (1 source.) ciprofloxac Ciprofloxac Quinolone 06-14-20 Complete no Cipro floxaci no in 500 mg in Antimicrobi 17 - d information n Hcl n capri oral tablet al 06-14-20 Discontinued (1 source.) 17 - 500 ORAL 06-14-20 Twice A Day 17 June 14, 2017 5:16pm (One-Time) metroNIDAZO metroNIDAZO Nitroimidaz 06-14-20 Complete no Met ronidazol no LE 500 mg LE ole 17 - d information e name oral tablet Antimicrobi 06-14-20 Discontinued (1 source.) al 17 - 500 ORAL 06-14-20 Three Times 17 A Day June 14, 2017 5:16pm (One-Time) ondansetron Ondansetron Serotonin-3 06-14-20 Complete no Ond ansetron no 8 mg Receptor 17 - d information Discontinued n capri disintegrat Antagonist 06-14-20 8 ORAL Every ing oral 17 - 6 Hours 10 tablet (1 06-14-20June source.) 2016 5:16pm (One-Time) Problems Active Problems Problem Normalized Date Last Normalized Normalized Provider Fa cility Classification Problem(s) Recorded Problem Problem Sta tus Duration External cause Activity, 12-19-2019 - Episodic Active [facility] Via codes: physical games Jayla KOWALSKI Unspecified (6 generally Hospital - sources.) associated [place] with school ([address]70) recess, summer camp and children Biliary tract Calculus of Episodic Active [facility] N ot Available disease (9 gallbladder , (10824) sources.) with chronic cholecystitis without obstruction Translations: [ CALCULUS OF BILE DUCT W/O CHOLANGITIS OR, Cholelithiasis , Calculus of bile duct with obstruction] Other nervous Carpal tunnel Chronic Active no name no i nformation system syndrome disorders (2 sources.) Superficial Contusion of Episodic Active CORRINE TANNER Comm unity injury; [facility] contusion (4 Translations: of [place] sources.) [ - Insect [place] (89403) bite (nonvenomous), right lower leg, initial encounter S80.861A, Right eye injury] Esophageal Gastro-esophag 12-19-2019 - Chronic Active [facility] Via disorders (13 eal reflux Jayla KOWALSKI sources.) disease Hospital - without [place] esophagitis (15725) Other eye Hyphema of Episodic Active LOCAL NO [place] [facility] ia disorders (1 right eye Jayla source.) Hospital ([address]842) Fracture of Nondisplaced 12-19-2019 - Episodic Active [facility] Via lower limb (7 fracture of AYDEJOSHORLINJOSTIN Florini sources.) distal phalanx [facility] - of right great [place] toe, initial () encounter for closed fracture Translations: [ Fracture of phalanx of great toe] Other injuries Other injury Episodic Active no name no i nformation and conditions of other sites due to of trunk external causes (2 sources.) Screening and Personal 12-19-2019 - Episodic Active [facility] Via history of history of Jayla KOWALSKI mental health nicotine [facility] - and substance dependence [place] abuse codes (61322) (13 sources.) Sprains and Sprain of Episodic Active no name no informa tion strains (2 thoracic sources.) Translations: [ SPRAIN OF NECK] External cause Striking 12-19-2019 - Episodic Active [facility] Via codes: Struck against or Jayla KOWALSKI by; against (6 struck by [facility] - sources.) other objects, [place] initial (75202) encounter NEGATED Umbilical Episodic Active no name no informati on no hernia without information (4 obstruction or sources.) gangrene Other injuries Unspecified 12-19-2019 - Episodic Active [facility] Via and conditions injury of LATONIAJOSTIN Florini due to right foot, [facility] - external initial [place] causes (6 encounter (71552) sources.) Past or Other Problems Problem Normalized Date Last Normalized Normalized Provider Fa cility Classification Problem(s) Recorded Problem Problem Sta tus Duration External Accidents no information no information no name no information Injury - Place occurring in of occurrence industrial (2 sources.) places and premises External Bitten or no information no information CORRINE TANNER Community Injury - stung [place] [id number] [place] [address] Natural / nonvenomous of [facility] Environment (1 insect and [place] ([address]69) source.) other nonvenomous arthropods, initial encounter Translations: [ - Bitten or stung by nonvenomous insect and other nonvenomous arthropods, initial encounter W57.XXXA] NEGATED Other external no information no information no name no information no cause status information (4 Translations: sources.) [ CIVILIAN ACTIVITY DONE FOR INCOME OR PAY] NEGATED Other no information no information JAYDEN Not Available no specified MD GALINA (84568) information (7 postprocedural sources.) states External Overexertion no information no information no name no information Injury - from sudden Overexertion strenuous (2 sources.) movement External Striking no information no information no name no information Injury - against or Struck by; struck against (2 accidentally sources.) by other stationary object without subsequent fall Procedures Procedure Normalized Procedure Procedure Result Performer Facility Date 05-20-2019 X-ray of right foot no information no name [facility] ([address]) Immunizations Normalized Immunization Date Notes Care Provider Facili ty Immunization no information 05-20-2019 no information LOCAL NO [facility] ([address]) Results The data below is from unstructured sourcesNo known relevant diagnostic tests, laboratory data and/or discharge summary.No known relevant diagnostic tests, laboratory data and/or discharge summary.No known relevant diagnostic tests, laboratory data and/or discharge summary. No Results No ResultsNo known relevant diagnostic tests and/or laboratory data.No known relevant diagnostic tests and/or laboratory data. Vital Signs Vital Sign Value Interpretation Reference Date Time Care Prov ider Facility (Normalized) (Normalized) Range BMI (Body Mass 36.79 kg/m2 (no code) 15 - 25 kg/m2 03-29-2018 [facility] Community Index) 19:30-[address] [place] [address] ([address]) Body 98.7 [degF] (no code) 97.8 - 99.0 03-29-2018 [facility] Temperature [degF] 19:30-[address] [place] [address] (497[address]) Height 177.8 cm (no code) cm 03-29-2018 [employer] 19:30-0400 [address] [facility] (57497) Weight 116.3 kg (no code) kg 03-29-2018 [employer] 19:30-[address] [place] [address] ([address]) Interventions No Information Plan of Treatment Normalized Care Care Detail Care Activity Date Care Provider F acility Activity Patient Education Toe Fracture (DC) no information LOCAL NO [place] [facility] ([address]) Patient referral no information no information LOCAL NO [facility] (43586) Goals Patient Goal Desired Goal no information no information Social History Normalized Code Original Code Date Value Tobacco smoking status Tobacco smoking status no information Ex-smoker (finding) COIS NHIS no information no information 02-21-2015 Occasionally Us es no information no information 02-21-2015 No no information no information 05-20-2019 Denies no information no information 05-20-2019 Former Smoker no information no information 05-20-2019 Cigarettes Sex Assigned At Sex Assigned At no information M moises Functional Status Status Assessment Result Care Provider Facility Functional status [place] Opioid-induced LOCAL NO [facility] (20468) Awake and alert Mental Status Status Assessment Result Care Provider Facility Cognitive function [place] Opioid-induced LOCAL NO [facility] Sedation [facility] (P[facility] (18994) Awake and alert Encounters Encounter Normalized Encounter Encounter Diagnosis Care Provi meena Organization Date Type 03-29-2018 (WALK-IN) Walk-In Care Insect bite LORENZOIMA TANNER (no [facility] (nonvenomous), right phone) CARE (no phone) lower leg, initial encounter 10-28-2015 (WALK-IN) Walk-In Care Pain, unspecified LEATHA debbie ZULETA (no [facility] phone) CARE (no phone) 05-20-2019 Emergency department no information (no phone) As [facility] - patient visit [facility] (no phone) 05-20-2019 05-20-2019 Emergency department no information [facility] IN[facility] ([facility]) [facility] 05-20-2019 (no phone) NEGATED Emergency department no information no name no organization name 06-14-2017 patient visit - 06-14-2017 04-22-2014 Emergency department no information no name no organization name - patient visit 04-22-2014 06-13-2016 Patient encounter no information no name no or ganization name - 06-13-2016 03-12-2016 Patient encounter no information no name no or ganization name - 03-12-2016 05-20-2019 Patient encounter no information no name no or ganization name procedure 06-14-2017 Patient encounter no information no name no or ganization name procedure 02-23-2017 Patient encounter no information no name no or ganization name procedure no information Encounter for other no name no organiz ation name preprocedural examination Medical Equipment The data below is from unstructured sourcesNo Medical Equipment Information available Payers Normalized Payer Value [facility] no information ([id number]) Evaluation note Note Type Note Facility Evaluation No Assessments Information Available A scension note [facility] ([id number]) Advance Directives Directive Response Recor ded Date/Time Advance Directives No 11:37am Health Care Power of Supervisor [employer] No 03/06/16 11:37am Resuscitation Status Full Code 03/06/16 11:37am Directive Response Recor ded Date/Time Advance Directives No 9:50am Health Care Power of Supervisor [employer] No 03/12/16 9:50am Organ Donor No 03/12/16 9:50am Resuscitation Status Full Code 03/12/16 9:50am Directive Response Recor ded Date/Time Advance Directives No 7:19pm Resuscitation Status Full Code 02/21/15 7:19pm Directive Response Recor ded Date/Time Advance Directives No 8:57pm Resuscitation Status Full Code 04/22/14 8:57pm Directive Response Recor ded Date/Time Advance Directives No 6:13pm Health Care Power of Supervisor [employer] No 06/12/17 6:13pm Organ Donor No 06/12/17 6:13pm Resuscitation Status Full Code 06/12/17 6:13pm Advance Directive Response Recorded Date/Time Advance Directives No No 2018 6:22pm Health Care Power of Supervisor [employer] No May 20, 2019 6:22pm Organ Donor No May 20, 2019 6:22pm Resuscitation Status Full Code May 20, 2019 6:22pm Discharge Instructions No hospital discharge instructions. Patient Instructions Physician Instructions New, Converted or Re-Newed RX: RX on Chart Plan of Care/Instructions/FU: 2-3 weeks Sanders Activity as Tolerated: No Discharge Diet: Regular Diet Other Inst to Patient Follow up Appt: Make appointment for 2-3 week. Instructions: No lifting greater than 10 pounds. No strenuous activity. May shower in 24 hours, no tub bath or soaking. Use incentive spirometer at home as directed. No Smoking Skin/Wound Care: May remove bandages in 48 hours. You need to leave the white strips over incision on they will fall off on their own. Symptoms to Report: Appetite Changes, Extremity Discoloration, Numbness/Tingling, Swelling Increased, Bleeding Excessive, Eyesight Changes, Pain Increased, Urine Color Shabnam nge, Constipation(Persistent), Fever over 101 degree F, Pain/Pressure in chest, Urinating Difficulty, Cough Up/Vomit Blood, Heart Beat Irreg/Pounding, Pain/Pressure in jaw, Vaginal Bleeding Increase, Cramps in feet or legs, Lightheadedness, Pain/Pressure in shoulder, Diarrhea(Persistent), Memory Changes Suddenly, Questions/Concerns, Weight gain consecutive days, Dizziness/Fainting, Nausea/Vomiting, Shortness of Breath, Weight gain over 2 pounds If questions or concerns contact your physician Or seek help at emergency department. Care Plan Patient Instructions:: 2-3 weeks Sanders No hospital discharge instructions.No hospital discharge instructions.No hospital discharge instruction information available. Summary Purpose eClinicalWorks Submission Chief Complaint and Reason for Visit Chief Complaint Lower Extremity Reason for Visit [id number] Additional Source Comments This clinical document has been generated using [employer] software that has been certified by the Office of the National Coordinator for Health Information Technology (ONC 15.99.04.3023.Diam.31.00.0.634650) and the National Committee for Efficiency Manager (NCQA, as an eMeasure certified technology). FOR RECORDS PERTAINING TO PATIENTS WHO ARE OR HAVE BEEN ENROLLED IN A CHEMICAL D EPENDENCY/SUBSTANCE ABUSE PROGRAM, SOME INFORMATION MAY BE OMITTED. This clinica l summary was aggregated from multiple sources. Caution should be exercised in using it in the provision of clinical care. This summary normalizes information from multiple sources, and as a consequence, information in this document may ma terially change the coding, format and clinical context of patient data. In marianna tion, data may be omitted in some cases. CLINICAL DECISIONS SHOULD BE BASED ON T HE PRIMARY CLINICAL RECORDS. [employer]. provides no warranty or guara ntee of the accuracy or completeness of information in this document.The followi ng information is based on time limited clinical information
--- OUTSIDE RECORDS SUMMARY | 2019-12-25 17:24 | XMS REPORT | Encounter Summary ---
Author Author [facility] Organization [facility] Address Unknown Phone Unavailable Care Team Providers Care Animal Care Attendant Name Role Phone Nehemiah Proctor MD Unavailable Adilia Fierro MD Unavailable Regina Carvajal RN Unavailable Unavailable Frank Damon MD PCP Reason for Visit * Reason Comments Post-op Left elbow Encounter Details Care Team Description Date Type Department Aylin Butchre MD [address] [facility] [address] [place] [address] Cubital tunnel syndrome on left (Primary Dx) 08/04/2019 Office Visit [facility] [address] [place] [address] Social History Date Tobacco Use Types Packs/Day Years Used Quit: 04/04/2009 Former Smoker Cigarettes 1 8 Smokeless Tobacco: Never Used Drinks/Week oz/Week Comments Alcohol Use 9 Cans of beer 9.0 Yes Sex Assigned at Date Recorded Not on file Industry Job Start Date Occupation Not on file Not on file Not on file Travel End Travel History Travel Start No recent travel history available. documented as of this encounter Last Filed Vital Signs Reading Time Taken Comments Vital Sign - - Blood Pressure - - Pulse - - Temperature - - Respiratory Rate - - Oxygen Saturation - - Inhaled Oxygen Concentration 115.7 kg (255 lb) 08/04/2019 9:21 AM OUTSIDE SALES INSPECTOR Weight 182.9 cm (6') 08/04/2019 9:21 AM OUTSIDE SALES INSPECTOR Height 34.58 08/04/2019 9:21 AM OUTSIDE SALES INSPECTOR Body Mass Index documented in this encounter Functional Status Date of Assessment Functional Status Response 03/03/2019 Does the patient have a hearing impairment: No 03/03/2019 Does the patient have a visual impairment: No 03/03/2019 Does the patient have impaired ambulation: No 03/03/2019 Does the patient have an activity of daily living No (ADL) impairment: 03/03/2019 Does the patient have an instrumental activity of No daily living (IADL) impairment: Date of Assessment Cognitive Status Response 03/03/2019 Does the patient have a cognitive impairment: No documented as of this encounter Progress Notes * Aylin Butcher MD - 08/04/2019 9:30 AM OUTSIDE SALES INSPECTOR SUBJECTIVE: Ravi Modi returns after having had his neurolysis of the ulnar nerve. 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 He has done very well. He said, T his was the best operation ever. I will take that as a compliment!. PHYSICAL EXAMINATION: On examination, he has not only regained his sensation, but his Wartenbergs sign is now gone. This is an indication that his intrins ic muscles have returned. His range of motion is full. There is no swelling. The wound is well healed. PLAN: He can return to see us p.r.n. Dictated by Aylin Butcher MD and transcribed via [employer] Custodian. Copied and p asted into O2 by Sarah Parker, 08/09/2019 7:43 AM IDE SALES INSPECTOR documented in this encounter Plan of Treatment Not on filedocumented as of this encounter Visit Diagnoses Diagnosis Cubital tunnel syndrome on left Lesion of ulnar nerve documented in this encounter
--- OUTSIDE RECORDS SUMMARY | 2019-12-25 17:24 | XMS REPORT | Clinical Summary ---
Author Author [facility] Organization [facility] Address Unknown Phone Unavailable Care Team Providers Care Highway Maintainer Name Role Phone Nehemiah Proctor MD Unavailable Adilia Fierro MD Unavailable Regina Carvajal RN Unavailable Unavailable Frank Damon MD PCP Source Comments Some departments are not documenting in the electronic medical record. If you d o not see the information that you expected, contact Release of Information in [facility] [employer] Information Management department at [phone] for further assistan ce in locating additional records.[facility] Allergies Comments Active Allergy Reactions Severity Noted Date Need Hypoallergenic pads Adhesive RASH Medium 05/15/2019 Iodinated Contrast Media NAUSEA AND Low 03/01 VOMITING Medications End Date Status Medication Sig Dispensed Refills Start Date Active dicyclomine (BENTYL) 20 Take 20 mg by 0 mg tablet mouth twice daily as needed. Active calcium carbonate (TUMS Take 2-4 0 PO) tablets by mouth daily as needed. Active Problems Problem Noted Date Cubital tunnel syndrome on left 03/16/2019 Hemangioma 03/16/2019 Family History Relation Name Status Comments Father Alive Mother Social History Date Tobacco Use Types Packs/Day [...] Travel Start No recent travel history available. Last Filed Vital Signs Reading Time Taken Comments Vital Sign 126/80 06/06/2019 4:45 PM MEDICAL EDITOR Blood Pressure 93 06/06/2019 4:45 PM MEDICAL EDITOR Pulse 36.8 C (98.2 F) 06/06/2019 4:45 PM MEDICAL EDITOR Temperature - - Respiratory Rate 93% 06/06/2019 4:45 PM MEDICAL EDITOR Oxygen Saturation - - Inhaled Oxygen Concentration 115.7 kg (255 lb) 08/04/2019 9:21 AM MEDICAL EDITOR Weight 182.9 cm (6') 08/04/2019 9:21 AM MEDICAL EDITOR Height 34.58 08/04/2019 9:21 AM MEDICAL EDITOR Body Mass Index Plan of Treatment Health Maintenance Due Date Last Done Comments HIV SCREENING 1993 DTAP/TDAP VACCINES (1 - 1996 Tdap) HEPATITIS C SCREENING 1996 PHYSICAL (COMPREHENSIVE) 1996 EXAM INFLUENZA VACCINE 04/04/2020 Results Not on filefrom Last 3 Months Insurance Type Payer Benefit Subscriber ID Effective Phone Address Plan / Dates Group PPO BCBS [employer] xxxxxxxxxxxx 2017-P OUT OF resent [place] -[id number] Advance Directives Patient Carver Hand Explanation Type Date Recorded Advance 02/14/2014 10:33 AM Directive/DPOA Date Inactivated Comments Code Status Date Activated 08/05/2011 5:08 AM Full Code 08/03/2011 2:41 PM Provider has discussed Code Status No, more discussi on w/Patient or Family? needed
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
[2019-12-25] MEDS: LACTATED RINGERS 1,000 ML IV SCH (17:25)
[2019-12-25] MEDS: ENOXAPARIN 40 MG/0.4 ML (LOVENOX) SYR SC SCH (17:25)
[2019-12-25] MEDS: fentaNYL INJECTION 100 MCG/2 ML AMP IV PRN ×2 (17:26→22:53)
--- NOTE | 2019-12-25 17:30 | NUR ---
patient stated throwing up in room. NG tube started to fall out at this time. Dr Sanders present at bedside and instructed this RN to push tube back in nose keeping it stead while he went to get more tape to secure it in place. NG recurred and bubble test performed to confirm placement. bubbles heard by this RN
--- NOTE | 2019-12-25 18:27 | NUR ---
JOSH GILLIS admitted to room 418-1, with an admitting diagnosis of SBO, on 12/25/19 from ED via wheelchair, accompanied by staff.JOSH GILLIS introduced to surroundings, call light, bed controls, phone, TV, temperature control, lights, meal times, smoking policy, visitor policy, side rail policy, bathrooms and showers. Patient Rights given to patient in the handbook. JOSH GILLIS verbalizes understanding that [facility] is not responsible for the loss or damage to any personal effects or valuables that are kept in the patients posession during their hospitalization. JOSH GILLIS verbalizes understanding of Interdisciplinary Patient Education. Patient and/or family were informed about the Rapid Response Team and its purpose.
--- NOTE | 2019-12-25 19:17 | History & Physical-Surgical ---
History of Present Illness History of Present Illness Reason for visit/HPI CC: abdominal pain and nausea. 39 year old male that began having abdominal pain in the epigastric region early this morning. Experiencing nausea, but no emesis. Nothing made worse or better. Patient not havie any emesis. Constant, with no radiation. Patient had ct scan suggestive of small bowel obstruction which you see a transition point of small bowel in middle anterior portion of abdomen. Denies fever sweats chills shortness of breath or chest pain. Ct scan: 1. Hepatic steatosis.2. Findings consistent with small bowel obstruction. There isfocal transition in the anterior midline mid abdomen where there does appear to be some bowel wall thickening and irregularity. 3. No abscess formation or pneumoperitoneum is identified.4. There is trace free fluid in the pelvis. Date of Admission Dec 25, 2019 at 16:00 Date Seen by a Provider: Dec 25, 2019 Time Seen by a Provider: 19:00 I consulted on this patient on 12/25/19 19:12 Attending Physician Shasha Sanders DO Admitting Physician Melissa,Local Physician Consult Allergies and Home Medications Allergies Coded Allergies: No Known Drug Allergies (Unverified , 03/06/16) Home Medications Ciprofloxacin HCl 500 Mg Tablet, 500 MG PO BID Prescribed by: COBY SANTOS on 06/14/171715 Hydrocodone Bit/Acetaminophen 1 Tab Tab, 1-2 EACH PO Q4H PRN for PAIN-MODERATE Prescribed by: RUTH DORAN on 05/20/191916 Hydrocodone/Acetaminophen 1 Each Tablet, 1 EACH PO Q6H PRN for PAIN-MODERATE TO SEVERE Prescribed by: COBY SANTOS on 06/14/171715 Metronidazole 500 Mg Tablet, 500 MG PO TID Prescribed by: COBY SANTOS on 06/14/171715 Ondansetron 8 Mg Tab.rapdis, 8 MG PO Q6H Prescribed by: COBY SANTOS on 06/14/171715 Patient Home Medication List Home Medication List Reviewed: Yes Past Msivxyv-Jvxasq-Pmommo Hx Patient Social History Alcohol Use: Denies Use Recreational Drug Use: No Former Smoker, Quit: Mar 06, 2011 Type Used: Cigarettes 2nd Hand Smoke Exposure: No Recent Foreign Travel: No Contact w/Someone Who Travel: No Recent Infectious Disease Expo: No Recent Hopitalizations: No Immunizations Up To Date Tetanus Booster (TDap): Unknown Seasonal Allergies Seasonal Allergies: No Surgeries History of Surgeries: Yes (LT ARM R/T VASCULAR INSUFFICIENCY, L LEG SET, R SHOULDER, hernia) Surgeries: Gallbladder, Vascular Surgery Respiratory History of Respiratory Disorde: No Cardiovascular History of Cardiac Disorders: No Neurological History of Neurological Disord: Yes (numbness lt anterior thigh x12 years & rt 3-5 fingers for "years") Reproductive System Hx Reproductive Disorders: No Sexually Transmitted Disease: No HIV/AIDS: No Genitourinary History of Genitourinary Disor: No Gastrointestinal History of Gastrointestinal Di: Yes (UMBILICAL HERNIA SURERY) Gastrointestinal Disorders: Gastroesophageal Reflux Musculoskeletal History of Musculoskeletal Dis: No Endocrine History of Endocrine Disorders: No HEENT History of HEENT Disorders: No Loss of Vision: Denies Hearing Impairment: Denies Cancer History of Cancer: No Psychosocial History of Psychiatric Problem: No Integumentary History of Skin or Integumenta: No Blood Transfusions History of Blood Disorders: No Adverse Reaction to a Blood Tr: No (N/A) Reviewed Nursing Assessment Reviewed/Agree w Nursing PMH: Yes Family Medical History Significant Family History: No Pertinent Family Hx Family Medial History: Patient reports no known family medical history. Review of Systems Constitutional: no symptoms reported; No chills, No diaphoresis, No fever, No weakness EENTM: no symptoms reported; No hearing loss, No ear pain Respiratory: no symptoms reported; No cough, No dyspnea on exertion Cardiovascular: no symptoms reported; No chest pain, No edema Gastrointestinal: abdominal pain (epigastric), nausea; No vomiting Genitourinary: no symptoms reported; No decreased output, No discharge Musculoskeletal: no symptoms reported; No back pain, No gout, No joint pain Skin: No change in color, No change in hair/nails Psychiatric/Neurological: Denies Anxiety, Denies Depressed, Denies Emotional Problems All Other Systems Reviewed Negative Unless Noted: Yes (Negative excepted noted.) Physical Exam Vital Signs Vital Signs - First Documented 12/25/19 14:53 Temp 36.8 Pulse 92 Resp 18 B/P (MAP) 115/89 Pulse Ox 95 O2 Delivery Room Air Capillary Refill : Less Than 3 Seconds Height, Weight, BMI Height: 6'0" Weight: 250lbs. 0.0oz. 113.294855re; 35.78 BMI Method:Stated General Appearance: No Apparent Distress, WD/WN, Other (ng tube) HEENT: PERRL/EOMI, TMs Normal, Normal ENT Inspection Neck: Normal Inspection, Non Tender, Supple Respiratory: Chest Non Tender, No Accessory Muscle Use, No Respiratory Distress Cardiovascular: Regular Rate, Rhythm Gastrointestinal: Soft, Distended (minimal), Tenderness (slight in epigastric area) Rectal: Deferred Back: No CVA Tenderness, No Vertebral Tenderness Extremity: Normal Inspection, Normal Range of Motion, Non Tender, No Calf Tenderness Neurologic/Psychiatric: Alert, Oriented x3, No Motor/Sensory Deficits, Normal Mood/Affect, switch cleaner II-XII Norm as Tested Skin: Normal Color, Warm/Dry Lymphatic: No Adenopathy Data Review Labs Laboratory Tests 12/25/19 14:54: White Blood Count 8.4, Red Blood Count 5.29, Hemoglobin 16.7, Hematocrit 49, Mean Corpuscular Volume 93, Mean Corpuscular Hemoglobin 32, Mean Corpuscular Hemoglobin Concent 34, Red Cell Distribution Width 13.1, Platelet Count 226, Mean Platelet Volume 10.0, Neutrophils (%) (Auto) 68, Lymphocytes (%) (Auto) 22, Monocytes (%) (Auto) 7, Eosinophils (%) (Auto) 3, Basophils (%) (Auto) 0, Neutrophils # (Auto) 5.7, Lymphocytes # (Auto) 1.9, Monocytes # (Auto) 0.6, Eosinophils # (Auto) 0.3, Basophils # (Auto) 0.0, Sodium Level 141, Potassium Level 4.1, Chloride Level 104, Carbon Dioxide Level 26, Anion Gap 11, Blood Urea Nitrogen 10, Creatinine 1.16, Estimat Glomerular Filtration Rate > 60, BUN/Creatinine Ratio 9, Glucose Level 106H, Calcium Level 10.6H, Corrected Calcium , Total Bilirubin 1.8H, Aspartate Amino Transf (AST/SGOT) 37H, Alanine Aminotransferase (ALT/SGPT) 67H, Alkaline Phosphatase 82, Total Protein 8.4H, Albumin 4.7H, Lipase 15 12/25/19 16:09: Urine Color YELLOW, Urine Clarity CLEAR, Urine pH 5.5, Urine Specific [place] 1.015L, Urine Protein NEGATIVE, Urine Glucose (UA) NEGATIVE, Urine Ketones NEGATIVE, Urine Nitrite NEGATIVE, Urine Bilirubin NEGATIVE, Urine Urobilinogen 0.2, Urine Leukocyte Esterase NEGATIVE, Urine RBC (Auto) NEGATIVE, Urine RBC NONE, Urine WBC RARE, Urine Squamous Epithelial Cells RARE, Urine Crystals NONE, Urine Bacteria TRACE, Urine Casts NONE, Urine Mucus SMALLH, Urine Other FEW SPERMH, Urine Culture Indicated NO Assessment/Plan Assessment/Plan Admission Diagonsis epigastric abdominal pain nausea psbo Patient with ct scan suggestive of psbo, ng tube placed to LIWS will get sbft in am. npo iv hydration conservative measures discussed with patient plan, if conservative measures don't work will need surgical intervention. patient agrees with plan. Admission Status: Observation Assessment/Plan epigastric abdominal pain nausea psbo Patient with ct scan suggestive of psbo, ng tube placed to LIWS will get sbft in am. npo iv hydration conservative measures discussed with patient plan, if conservative measures don't work will need surgical intervention. patient agrees with plan. Clinical Quality Measures DVT/VTE Risk/Contraindication: Risk Factor Score Per Nursin RFS Level Per Nursing on Admit: 2=Moderate SHASHA SANDERS DO Dec 25, 2019 19:17
[2019-12-25 19:45] VITALS: BP 119/79
[2019-12-26 00:44] VITALS: BP 137/81
[2019-12-26] MEDS: LACTATED RINGERS 1,000 ML IV SCH ×3 (01:41→16:31)
[2019-12-26 04:00] VITALS: BP 138/76
[2019-12-26 05:49] LABS: BASOPHILS % (AUTO) 0 % (0-10); EOSINOPHILS % (AUTO) 1 % (0-10); HEMATOCRIT 47 % (40-54); HEMOGLOBIN 15.4 G/DL (13.3-17.7); LYMPHOCYTES # (AUTO) 1.4 X 10^3 (1.0-4.0); LYMPHOCYTES % (AUTO) 18 % (12-44); MEAN CORPUSCULAR HEMOGLOBIN 31 PG (25-34); MEAN CORPUSCULAR HGB CONC 33 G/DL (32-36); MEAN CORPUSCULAR VOLUME 95 FL (80-99); MONOCYTES # (AUTO) 0.5 X 10^3 (0.0-1.0); MONOCYTES % (AUTO) 6 % (0-12); NEUTROPHILS # (AUTO) 5.7 X 10^3 (1.8-7.8); NEUTROPHILS % (AUTO) 75 % (42-75); PLATELET COUNT 211 10^3/uL (130-400); RED CELL DISTRIBUTION WIDTH 13.4 % (10.0-14.5); WHITE BLOOD COUNT 7.6 10^3/uL (4.3-11.0)
[2019-12-26 05:58] LABS: ALBUMIN 4.3 GM/DL (3.2-4.5)
[2019-12-26 05:59] LABS: CHLORIDE 105 MMOL/L (98-107); POTASSIUM 4.2 MMOL/L (3.6-5.0); SODIUM 142 MMOL/L (135-145)
[2019-12-26 06:00] LABS: CALCIUM 9.8 MG/DL (8.5-10.1)
[2019-12-26 06:01] LABS: GLUCOSE 113 MG/DL (70-105); TOTAL PROTEIN 7.5 GM/DL (6.4-8.2)
[2019-12-26 06:02] LABS: CARBON DIOXIDE 27 MMOL/L (21-32)
[2019-12-26 06:03] LABS: BILIRUBIN,TOTAL 2.2 MG/DL (0.1-1.0)
[2019-12-26 06:04] LABS: ALKALINE PHOSPHATASE 81 U/L (40-136)
[2019-12-26 06:05] LABS: CREATININE SERUM 1.01 MG/DL (0.60-1.30); GFR ESTIMATED > 60
[2019-12-26 06:06] LABS: BUN/CREATININE RATIO 11
[2019-12-26 06:07] LABS: ALANINE AMINOTRANSFERASE 60 U/L (0-55)
[2019-12-26 08:00] VITALS: BP 132/77
[2019-12-26] MEDS ORDERED: DIATRIZOATE MEGLUM/SODIUM 37% 120 ML (GASTROGRAFIN) NG ONE (08:30)
--- NOTE | 2019-12-26 10:01 | Diagnostic Imaging Report ---
INDICATION: Small bowel obstruction. 120 mL Gastrografin contrast mixed with 120 mL of water were injected through the patient's indwelling NG tube. Serial radiographs of the abdomen were then performed. Preliminary radiograph demonstrates moderate gaseous distention of small bowel loops in the central abdomen. Gas is seen within the colon which is decompressed. Post injection images demonstrate contrast within the stomach with prompt emptying of contrast into proximal small bowel loops. There is some central small bowel dilatation but contrast does appear to progress through the small bowel loops in a normal timely fashion, reaching the right colon at approximately 45 minutes to 1 hour. Mucosal fold pattern is unremarkable. IMPRESSION: No evidence of complete small bowel obstruction. Dictated by: Dictated on workstation # [id number]
--- NOTE | 2019-12-26 10:43 | NUR ---
I SPOKE WITH THE PT TO COMPLETE THE MED REC PT DENIES TAKING ANY PRESCRIPTION OR OTC MEDICATIONS I DID VERIFY THE PREFERRED PHARMACY
[2019-12-26 12:00] VITALS: BP 164/80
--- NOTE | 2019-12-26 14:19 | Progress Note - Surgery ---
Subjective Date Seen by a Provider: Dec 26, 2019 Time Seen by a Provider: 14:13 Subjective/Events-last exam Patient feeling better. SBFT showed normal transit time. He is passing flatus and having bm. Still slight epigastric abdominal pain but improving. T bili increased. Denies n/v fever sweats chills shortness of breath or chest pain. Objective Exam Vital Signs Date Time Temp Pulse Resp B/P (MAP) Pulse Ox O2 Delivery O2 Flow Rate FiO2 12/26/19 11:40 Room Air 12/26/19 08:00 37.3 84 20 132/77 (95) 92 Room Air 12/26/19 04:00 36.9 78 20 138/76 (96) 93 Room Air 12/26/19 00:44 36.9 72 18 137/81 (99) 97 Room Air 12/25/19 19:45 36.2 74 18 119/79 (92) 93 Room Air 12/25/19 19:45 Room Air 12/25/19 19:35 95 Room Air 12/25/19 17:16 36.3 90 18 129/85 95 Room Air 12/25/19 14:53 36.8 100 18 113/89 (97) 98 Room Air 12/25/19 14:53 92 18 115/89 95 Room Air I & O 12/26/19 07:00 Intake Total 0 ml Output Total 701 ml Balance -701 ml Capillary Refill : Less Than 3 Seconds General Appearance: No Apparent Distress, WD/WN, Other (ng tube) HEENT: PERRL/EOMI, TMs Normal, Normal ENT Inspection Neck: Normal Inspection, Non Tender, Supple Respiratory: Chest Non Tender, No Accessory Muscle Use, No Respiratory Distress Cardiovascular: Regular Rate, Rhythm Gastrointestinal: normal bowel sounds, soft, tenderness (less) Extremity: Normal Inspection, Normal Range of Motion, Non Tender, No Calf Tenderness Neurologic/Psychiatric: Alert, Oriented x3, No Motor/Sensory Deficits, Normal Mood/Affect, vp respiratory II-XII Norm as Tested Skin: Normal Color, Warm/Dry Lymphatic: No Adenopathy Results Lab Laboratory Tests 12/25/19 14:54: White Blood Count 8.4, Red Blood Count 5.29, Hemoglobin 16.7, Hematocrit 49, Mean Corpuscular Volume 93, Mean Corpuscular Hemoglobin 32, Mean Corpuscular Hemoglobin Concent 34, Red Cell Distribution Width 13.1, Platelet Count 226, Mean Platelet Volume 10.0, Neutrophils (%) (Auto) 68, Lymphocytes (%) (Auto) 22, Monocytes (%) (Auto) 7, Eosinophils (%) (Auto) 3, Basophils (%) (Auto) 0, Neutrophils # (Auto) 5.7, Lymphocytes # (Auto) 1.9, Monocytes # (Auto) 0.6, Eosinophils # (Auto) 0.3, Basophils # (Auto) 0.0, Sodium Level 141, Potassium Level 4.1, Chloride Level 104, Carbon Dioxide Level 26, Anion Gap 11, Blood Urea Nitrogen 10, Creatinine 1.16, Estimat Glomerular Filtration Rate > 60, BUN/Creatinine Ratio 9, Glucose Level 106H, Calcium Level 10.6H, Corrected Calcium , Total Bilirubin 1.8H, Aspartate Amino Transf (AST/SGOT) 37H, Alanine Aminotransferase (ALT/SGPT) 67H, Alkaline Phosphatase 82, Total Protein 8.4H, Albumin 4.7H, Lipase 15 12/25/19 16:09: Urine Color YELLOW, Urine Clarity CLEAR, Urine pH 5.5, Urine Specific [place] 1.015L, Urine Protein NEGATIVE, Urine Glucose (UA) NEGATIVE, Urine Ketones NEGATIVE, Urine Nitrite NEGATIVE, Urine Bilirubin NEGATIVE, Urine Urobilinogen 0.2, Urine Leukocyte Esterase NEGATIVE, Urine RBC (Auto) NEGATIVE, Urine RBC NONE, Urine WBC RARE, Urine Squamous Epithelial Cells RARE, Urine Crystals NONE, Urine Bacteria TRACE, Urine Casts NONE, Urine Mucus SMALLH, Urine Other FEW SPERMH, Urine Culture Indicated NO 12/26/19 05:22: White Blood Count 7.6, Red Blood Count 4.92, Hemoglobin 15.4, Hematocrit 47, Mean Corpuscular Volume 95, Mean Corpuscular Hemoglobin 31, Mean Corpuscular Hemoglobin Concent 33, Red Cell Distribution Width 13.4, Platelet Count 211, Mean Platelet Volume 10.0, Neutrophils (%) (Auto) 75, Lymphocytes (%) (Auto) 18, Monocytes (%) (Auto) 6, Eosinophils (%) (Auto) 1, Basophils (%) (Auto) 0, Lisa trophils # (Auto) 5.7, Lymphocytes # (Auto) 1.4, Monocytes # (Auto) 0.5, Eosinophils # (Auto) 0.0, Basophils # (Auto) 0.0, Sodium Level 142, Potassium Level 4.2, Chloride Level 105, Carbon Dioxide Level 27, Anion Gap 10, Blood Urea Nitrogen 11, Creatinine 1.01, Estimat Glomerular Filtration Rate > 60, BUN/Creatinine Ratio 11, Glucose Level 113H, Calcium Level 9.8, Corrected Calcium 9.6, Total Bilirubin 2.2H, Aspartate Amino Transf (AST/SGOT) 31, Alanine Aminotransferase (ALT/SGPT) 60H, Alkaline Phosphatase 81, Total Protein 7.5, Albumin 4.3 Assessment/Plan Assessment/Plan Assessment/Plan epigastric abdominal pain nausea psbo elevated T bilirubin will get sbft shows contrast moving through normal trasit time pull ng and start clear liquids iv hydration will get direct bili and repeat labs in am no surgical intervention at this time see how continues to progress Clinical Quality Measures DVT/VTE Risk/Contraindication: Risk Factor Score Per Nursin RFS Level Per Nursing on Admit: 2=Moderate SHASHA BRIGHT DO Dec 26, 2019 14:19
[2019-12-26 16:39] VITALS: BP 130/78
[2019-12-26] MEDS: ENOXAPARIN 40 MG/0.4 ML (LOVENOX) SYR SC SCH (18:05)
[2019-12-26 20:22] VITALS: BP 119/65
[2019-12-27] VITALS (7 sets, daily range): BP systolic 101–148; BP diastolic 65–84
[2019-12-27] MEDS: LACTATED RINGERS 1,000 ML IV SCH ×3 (00:33→18:12)
[2019-12-27 06:03] LABS: HEMOGLOBIN 13.7 G/DL (13.3-17.7); MEAN PLATELET VOLUME 10.2 FL (7.4-10.4); RED CELL DISTRIBUTION WIDTH 12.9 % (10.0-14.5); WHITE BLOOD COUNT 5.8 10^3/uL (4.3-11.0)
[2019-12-27 06:10] LABS: ALBUMIN 3.8 GM/DL (3.2-4.5); CHLORIDE 106 MMOL/L (98-107); SODIUM 143 MMOL/L (135-145)
[2019-12-27 06:11] LABS: CALCIUM 8.8 MG/DL (8.5-10.1)
[2019-12-27 06:13] LABS: GLUCOSE 86 MG/DL (70-105); TOTAL PROTEIN 6.5 GM/DL (6.4-8.2)
[2019-12-27 06:14] LABS: BILIRUBIN,TOTAL 2.4 MG/DL (0.1-1.0); CARBON DIOXIDE 29 MMOL/L (21-32)
[2019-12-27 06:16] LABS: ALKALINE PHOSPHATASE 71 U/L (40-136); GFR ESTIMATED > 60
[2019-12-27 06:17] LABS: BUN/CREATININE RATIO 12
[2019-12-27 06:18] LABS: BILIRUBIN,DIRECT 0.8 MG/DL (0.0-0.3)
[2019-12-27 06:19] LABS: ALANINE AMINOTRANSFERASE 57 U/L (0-55)
--- NOTE | 2019-12-27 11:28 | NUR ---
"RD ASSESSMENT PMHx: GERD PT INTERACTION: Pt was awake and pleasant during nutrition assessment. Pt states current appetite is good. Note avg PO intake 33% x3meal, per chart review. Pt states following a regular diet at home, and has no issues with chewing/swallowing food. Pt states some recent issues with nausea, vomiting, constipation and diarrhea. Note last BM was 12/26, and pt not currently on bowel regimen per chart review. Pt states no recent wt changes. Note recent 12# wt gain x7mon, per chart review. ABNORMAL NUTRITION-RELATED LAB VALUES LOW: HIGH: bili 2.4; AST 44; ALT 57 Est. kcal needs: 3403-2046 kcal | 15-18 kcal/kg Est. Pro needs: 98-123 g Pro | 0.8-1.0 g Pro/kg PES STATEMENT: Inadequate oral intake (NI-2.1) related to nausea | vomiting | constipation | diarrhea as evidenced by pt interview | avg PO intake 33% x3meal INTERVENTION: Continue with current diet order of Clear Liquid diet. Would recommend diet advancement when medically able and as tolerated. Will continue to follow and reassess as pt needs, intake, and status change. MONITOR/EVALUATE: PO Intake; Plan of Care; Hydration Status; Weight Status; Lab Values Jesus Murillo, MS, RD, LD"
--- NOTE | 2019-12-27 14:08 | Diagnostic Imaging Report ---
PROCEDURE: MR imaging cholangiography-pancreatography. TECHNIQUE: Multiplanar imaging of the abdomen was performed on a 1.5 Judi magnet without contrast. 3D reconstructions were made for the MRCP INDICATION: Abdominal pain. History of small bowel resection. COMPARISON: The study is interpreted in correlation with a contrast enhanced abdominal pelvic CT of 12/25/2019. FINDINGS: There is no pathological dilatation, beading, or irregularity of the intra or extrahepatic bile ducts. No intraductal filling defect or evidence for choledocholithiasis. The common bile duct measures a normal 3.9 mm. Pancreatic duct morphology, insertion, and caliber is normal. The pancreatic parenchyma shows homogenous normal signal intensity. No peripancreatic fluid collection or edema is evident. The stomach is nondistended and the abdominal left upper quadrant small bowel shows some air-fluid levels measuring 3.2 cm maximally reflecting a reduction in dilatation when compared to the CT. The gallbladder is surgically absent. The hepatic parenchymal signal intensity is congruent with mild steatosis which appears homogenous. No space-occupying liver lesion or mass. No basilar pleural fluid. No abdominal ascites. The nonfocal spleen is normal in size. The adrenals are negative. The kidneys are unobstructed and normal aside from a tiny 1 cm upper pole exophytic cyst on the right. The renal lower poles are only seen on the coronal views where they are unremarkable. The aorta is nonaneurysmal. There is no mesenteric or retroperitoneal adenopathy. IMPRESSION: 1. Fatty liver. Absent gallbladder. No biliary dilatation, choledocholithiasis, or pancreatic abnormality. No ascites or fluid collection. Normal sized spleen. 2. Reduction in small bowel dilatation. Dictated by: Dictated on workstation # [id number]
[2019-12-27] MEDS: ENOXAPARIN 40 MG/0.4 ML (LOVENOX) SYR SC SCH (18:11)
[2019-12-27 22:16] LABS: HEPATITIS C ANTIBODY C Non-Reactive (Non-Reactive)
--- NOTE | 2019-12-27 22:16 | Progress Note - Surgery ---
Subjective Date Seen by a Provider: Dec 27, 2019 Time Seen by a Provider: 10:35 Subjective/Events-last exam Feeling better today. Still slight epigastric abdominal pain. Having flatus and bm. Tolerating clear liquids. Denies n/v fever sweats chills shortness of breath or chest pain. Bilirubin increasing. Objective Exam Vital Signs Date Time Temp Pulse Resp B/P (MAP) Pulse Ox O2 Delivery O2 Flow Rate FiO2 12/27/19 19:43 36.9 70 18 148/80 (102) 96 Room Air 12/27/19 15:47 37.0 71 20 132/74 (93) 96 Room Air 12/27/19 11:01 37.0 68 18 142/81 (101) 95 Room Air 12/27/19 08:00 Room Air 12/27/19 07:21 37.6 95 18 143/84 (103) 94 Room Air 12/27/19 04:00 37.2 74 21 111/65 (80) 94 Room Air 12/27/19 00:00 37.0 76 20 127/67 (87) 92 Room Air I & O 12/27/19 07:00 Intake Total 3530 ml Balance 3530 ml Capillary Refill : Less Than 3 SecondsLess Than 3 Seconds General Appearance: No Apparent Distress, WD/WN, Other (ng tube) HEENT: PERRL/EOMI, Normal ENT Inspection Neck: Normal Inspection, Non Tender, Supple Respiratory: Chest Non Tender, No Accessory Muscle Use, No Respiratory Distress Cardiovascular: Regular Rate, Rhythm, No Edema Gastrointestinal: normal bowel sounds, soft, tenderness (in epigastric, minimal) Extremity: Normal Inspection, Normal Range of Motion, Non Tender, No Calf Tenderness Neurologic/Psychiatric: Alert, Oriented x3, No Motor/Sensory Deficits, Normal Mood/Affect, repair armature winder II-XII Norm as Tested Skin: Normal Color, Warm/Dry Lymphatic: No Adenopathy Results Lab Laboratory Tests 12/27/19 05:39: White Blood Count 5.8, Red Blood Count 4.33L, Hemoglobin 13.7, Hematocrit 42, Mean Corpuscular Volume 97, Mean Corpuscular Hemoglobin 32, Mean Corpuscular Hemoglobin Concent 33, Red Cell Distribution Width 12.9, Platelet Count 177, Mean Platelet Volume 10.2, Sodium Level 143, Potassium Level 4.0, Chloride Level 106, Carbon Dioxide Level 29, Anion Gap 8, Blood Urea Nitrogen 11, Creatinine 0.90, Estimat Glomerular Filtration Rate > 60, BUN/Creatinine Ratio 12, Glucose Level 86, Calcium Level 8.8, Corrected Calcium 9.0, Total Bilirubin 2.4H, Direct Bilirubin 0.8H, Aspartate Amino Transf (AST/SGOT) 44H, Alanine Aminotransferase (ALT/SGPT) 57H, Alkaline Phosphatase 71, Lactate Dehydrogenase 192, Total Protein 6.5, Albumin 3.8 Assessment/Plan Assessment/Plan Assessment/Plan epigastric abdominal pain improving nausea psbo elevated T bilirubin sbft shows contrast moving through normal transit time tolerating clear liquids iv hydration will get direct bili and repeat labs in am since they are trending up consult medicine no surgical intervention at this time will get MRCP to evaluate if he has retained stone, since bili's increasing, he has history of retained stone requiring ERCP see how continues to progress Clinical Quality Measures DVT/VTE Risk/Contraindication: Risk Factor Score Per Nursin RFS Level Per Nursing on Admit: 2=Moderate SHASHA BRIGHT DO Dec 27, 2019 22:16
[2019-12-28] MEDS: LACTATED RINGERS 1,000 ML IV SCH (02:48)
[2019-12-28 04:56] VITALS: BP 129/78
[2019-12-28 06:22] LABS: MEAN PLATELET VOLUME 9.9 FL (7.4-10.4); RED CELL DISTRIBUTION WIDTH 12.7 % (10.0-14.5)
[2019-12-28 06:28] LABS: ALBUMIN 3.9 GM/DL (3.2-4.5); CHLORIDE 107 MMOL/L (98-107); POTASSIUM 3.8 MMOL/L (3.6-5.0); SODIUM 142 MMOL/L (135-145)
[2019-12-28 06:30] LABS: CALCIUM 9.1 MG/DL (8.5-10.1)
[2019-12-28 06:31] LABS: GLUCOSE 82 MG/DL (70-105); TOTAL PROTEIN 6.8 GM/DL (6.4-8.2)
[2019-12-28 06:32] LABS: CARBON DIOXIDE 25 MMOL/L (21-32)
[2019-12-28 06:33] LABS: BILIRUBIN,TOTAL 2.3 MG/DL (0.1-1.0)
[2019-12-28 06:34] LABS: ALKALINE PHOSPHATASE 75 U/L (40-136)
[2019-12-28 06:35] LABS: CREATININE SERUM 0.82 MG/DL (0.60-1.30); GFR ESTIMATED > 60
[2019-12-28 06:36] LABS: BILIRUBIN,DIRECT 0.8 MG/DL (0.0-0.3); BUN/CREATININE RATIO 11
[2019-12-28 06:37] LABS: ALANINE AMINOTRANSFERASE 56 U/L (0-55)
[2019-12-28 07:46] VITALS: BP 127/81
[2019-12-28 11:22] VITALS: BP 118/76
--- NOTE | 2019-12-28 13:37 | Consultation - Hospitalist ---
HPI History of Present Illness: HPI/Chief Complaint Tania Modi is a 39-year-old male who is admitted for small bowel obstruction. He has had previous surgeries for hernia repair and gallbladder removal. He has been treated conservatively and his obstruction has resolved. The hospitalist service has been consulted due to hyperbilirubinemia. He denies any abdominal pain at this time. He is having bowel movements and passing flatus. He denies any nausea or vomiting. He denies any fevers or chills. He is eating and drinking well without issue. He denies any shortness of breath or cough. He has no other complaints or concerns. Source: patient Exam Limitations: no limitations Date Seen 12/28/19 Attending Physician Rehan Sanders DO PCP No,Local Physician Referring Physician Date of Admission Dec 25, 2019 at 16:00 Home Medications & Allergies Home Medications Reviewed patient Home Medication Reconciliation performed by pharmacy medication reconciliations geothermal field technician and/or nursing. Patients Allergies have been reviewed. Allergies Allergies Coded Allergies No Known Drug Allergies (Unverified03/06/16) Past Yjzmdmo-Upldkj-Jvrkch Hx Past Med/Social Hx: Reviewed Nursing Past Med/Soc Hx Patient Social History Alcohol Use: Denies Use Alcohol Beverage of Choice: Beer Recreational Drug Use: No Former Smoker, Quit: Mar 06, 2011 Type Used: Cigarettes 2nd Hand Smoke Exposure: No Recent Foreign Travel: No Contact w/other who traveled: No Recent Hopitalizations: No Recent Infectious Disease Expo: No Immunizations Up To Date Tetanus Booster (TDap): Unknown Seasonal Allergies Seasonal Allergies: No Past Medical History Surgeries: Gallbladder, Vascular Surgery Reproductive: No Sexually Transmitted Disease: No HIV/AIDS: No Gastrointestinal: Gastroesophageal Reflux Loss of Vision: Denies Hearing Impairment: Denies History of Blood Disorders: No Adverse Reaction to Blood Sotomayor: No (N/A) Family History Patient reports no known family medical history. No Pertinent Family Hx Review of Systems Constitutional: no symptoms reported EENTM: no symptoms reported Respiratory: no symptoms reported Cardiovascular: no symptoms reported Gastrointestinal: abdominal pain Genitourinary: no symptoms reported Musculoskeletal: no symptoms reported Skin: no symptoms reported Psychiatric/Neurological: No Symptoms Reported Physical Exam Physical Exam Vital Signs Vital Signs - First Documented 12/25/19 14:53 Temp 36.8 Pulse 92 Resp 18 B/P (MAP) 115/89 Pulse Ox 95 O2 Delivery Room Air Capillary Refill : Less Than 3 SecondsLess Than 3 Seconds Height, Weight, BMI Height: 6'0" Weight: 250lbs. 0.0oz. 113.940306zv; 35.78 BMI Method:Stated General Appearance: No Apparent Distress, WD/WN, Other (ng tube) Neck: Normal Inspection, Supple Respiratory: Lungs Clear, Normal Breath Sounds, No Respiratory Distress Cardiovascular: Regular Rate, Rhythm, No Edema, No Murmur Gastrointestinal: Normal Bowel Sounds, Non Tender, Soft Extremity: Normal Inspection, Non Tender, No Pedal Edema Neurologic/Psychiatric: Alert, Oriented x3, No Motor/Sensory Deficits, Normal Mood/Affect Skin: Normal Color, Warm/Dry Results Results/Procedures Labs Laboratory Tests 12/27/19 05:39 12/28/19 05:52 Patient resulted labs reviewed. Imaging: Reviewed Imaging Report Assessment/Plan Assessment and Plan Assess & Plan/Chief Complaint SBO Surgery primary CT abdomen showed obstruction Small bowel follow-through normal Resolved Hyperbilirubinemia Elevated LFTs Total bilirubin 2.3, now trending down Direct bilirubin 0.8 AST/ALT 43/56 Hgb normal, LDH normal, haptoglobin elevated, indicating no hemolysis Hepatitis panel negative Celiac panel negative MRCP normal Continue to monitor LFTs outpatient Thank you for the consult. Please contact the hospitalist service with any questions or concerns. We will sign off. Diagnosis/Problems Diagnosis/Problems (1) Hyperbilirubinemia Status: Acute (2) Small bowel obstruction Status: Acute Clinical Quality Measures DVT/VTE Risk/Contraindication: Risk Factor Score Per Nursin RFS Level Per Nursing on Admit: 2=Moderate CRISTY ROSENBERG MD Dec 28, 2019 13:37
--- NOTE | 2019-12-28 15:03 | Discharge Inst-Simple/Standard ---
Discharge Inst-Standard Patient Instructions/Follow Up Plan of Care/Instructions/FU: 2 weeks Marilyn Have blood work drawn prior to visit. CBC,CMP Activity as Tolerated: Yes Discharge Diet: Regular Diet Other Inst to Patient Follow up Appt: Make appointment for 2 week. Have blood work prior to visit. CBC, CMP Symptoms to Report: Appetite Changes, Extremity Discoloration, Numbness/Tingling, Swelling Increased, Bleeding Excessive, Eyesight Changes, Pain Increased, Urine Color Change, Constipation(Persistent), Fever over 101 degree F, Pain/Pressure in chest, Urinating Difficulty, Cough Up/Vomit Blood, Heart Beat Irreg/Pounding, Pain/Pressure in jaw, Vaginal Bleeding Increase, Cramps in feet or legs, Lightheadedness, Pain/Pressure in shoulder, Diarrhea(Persistent), Memory Changes Suddenly, Questions/Concerns, Weight gain consecutive days, Dizziness/Fainting, Nausea/Vomiting, Shortness of Breath, Weight gain over 2 pounds If questions or concerns contact your physician Or seek help at emergency department. SHASHA BRIGHT DO Dec 28, 2019 15:03
--- NOTE | 2019-12-28 15:10 | Progress Note - Surgery ---
Subjective Date Seen by a Provider: Dec 28, 2019 Time Seen by a Provider: 15:06 Subjective/Events-last exam Passing flatus and bm. Tolerating diet. Not having pain. Denies fever sweats chills shortness of breath or chest pain. Bilirubin starting down. Denies nausea and vomiting. MRCP negative. Objective Exam Vital Signs Date Time Temp Pulse Resp B/P (MAP) Pulse Ox O2 Delivery O2 Flow Rate FiO2 12/28/19 11:22 36.4 67 18 118/76 (90) 95 Room Air 12/28/19 09:00 Room Air 12/28/19 07:46 36.6 65 20 127/81 (96) 95 Room Air 12/28/19 04:56 36.9 74 16 129/78 (95) 96 Room Air 12/27/19 23:32 37.2 60 18 101/65 (77) 95 Room Air 12/27/19 20:15 Room Air 12/27/19 19:43 36.9 70 18 148/80 (102) 96 Room Air 12/27/19 15:47 37.0 71 20 132/74 (93) 96 Room Air I & O 12/28/19 07:00 Intake Total 2370 ml Output Total 350 ml Balance 2020 ml Capillary Refill : Less Than 3 SecondsLess Than 3 Seconds General Appearance: No Apparent Distress, WD/WN, Other (ng tube) HEENT: PERRL/EOMI Neck: Normal Inspection, Supple Respiratory: Chest Non Tender, No Accessory Muscle Use, No Respiratory Distress Cardiovascular: Regular Rate, Rhythm, No Edema Gastrointestinal: normal bowel sounds, non tender, soft; No guarding, No rebound Extremity: Normal Inspection, Non Tender, No Pedal Edema Neurologic/Psychiatric: Alert, Oriented x3, No Motor/Sensory Deficits, Normal Mood/Affect Skin: Normal Color, Warm/Dry Lymphatic: No Adenopathy Results Lab Laboratory Tests 12/28/19 05:52: White Blood Count 5.0, Red Blood Count 4.53, Hemoglobin 14.0, Hematocrit 43, Mean Corpuscular Volume 95, Mean Corpuscular Hemoglobin 31, Mean Corpuscular Hemoglobin Concent 33, Red Cell Distribution Width 12.7, Platelet Count 184, Mean Platelet Volume 9.9, Sodium Level 142, Potassium Level 3.8, Chloride Level 107, Carbon Dioxide Level 25, Anion Gap 10, Blood Urea Nitrogen 9, Creatinine 0.82, Estimat Glomerular Filtration Rate > 60, BUN/Creatinine Ratio 11, Glucose Level 82, Calcium Level 9.1, Corrected Calcium 9.2, Total Bilirubin 2.3H, Direct Bilirubin 0.8H, Aspartate Amino Transf (AST/SGOT) 43H, Alanine Aminotransferase (ALT/SGPT) 56H, Alkaline Phosphatase 75, Total Protein 6.8, Albumin 3.9 Assessment/Plan Assessment/Plan Assessment/Plan epigastric abdominal pain improved nausea improved psbo elevated T bilirubin trending down sbft shows contrast moving through normal transit time tolerating diet iv hydration can follow LFT outpatient no surgical intervention at this time okay to dc home patient in agreement with plan. Clinical Quality Measures DVT/VTE Risk/Contraindication: Risk Factor Score Per Nursin RFS Level Per Nursing on Admit: 2=Moderate SHASHA BRIGHT DO Dec 28, 2019 15:10
--- NOTE | 2019-12-29 01:52 | DISCHARGE SUMMARY ---
DATE OF SERVICE: ADMITTING DIAGNOSES: Epigastric abdominal pain, nausea, partial small bowel obstruction. DISCHARGE DIAGNOSES: Epigastric abdominal pain, nausea, partial small bowel obstruction, hyperbilirubinemia. ADMITTING PHYSICIAN: Shasha Sanders DO CONSULTANTS: Dr. Cummins. HOSPITAL COURSE: The patient is a 39-year-old male who presented to the Emergency Department with abdominal pain in the epigastric region. He had a CT scan consistent with a small bowel obstruction. The patient was admitted to the hospital, had an NG tube placed and conservative measures performed. The patient had a small bowel follow through performed the next day, which demonstrated no evidence of any complete small bowel obstruction. The patient continued to improve. He was started on diet. He was tolerating diet, he was having bowel movements and passing flatus. The patient had hyperbilirubinemia, which he has history of a retained stone after cholecystectomy, which an MRCP was performed demonstrating fatty liver, absent gallbladder. No biliary dilatation, no choledocholithiasis or pancreatic abnormality. No ascites or fluid collection. Normal sized spleen and reduction of small bowel dilatation. The patient's labs were continued to follow and on 12/28/2019, they can started to slightly improved. He is tolerating diet. He is having no pain. The patient is okay for discharge home with followup labs planned and follow up ordered. The patient agrees with the plan. The patient will be discharged home today on 12/28/2019 with followup, any changes prior to that, the patient understands that this be reevaluated at that time. Job ID: [id number] DocumentID: [id number] Dictated Date: 12/28/2019 15:14:19 Computer Security Specialist Date: 12/29/2019 01:51:59 Dictated By: SHASHA SANDERS DO
== END 2019-12-28 15:55 | disposition home or self-care (01) | DRG 390 ==
LOC: EDUNIT# 14:40 → ER 14:41 → 4TH 16:00 → OBSVTOIN 16:00 → 4TH 12-26 12:12
PROVIDERS: ADMIT Surgery; ATTEND Surgery
PROC: 0DH67UZ Insertion of Feeding Device into Stomach, Via Natural or Artificial Opening (ICD-10-PCS; principal; 2019-12-25)
DX: K56.600 Partial intestinal obstruction, unspecified as to cause (principal); E80.6 Other disorders of bilirubin metabolism; Z90.49 Acquired absence of other specified parts of digestive tract
CPT/HCPCS: 36415; 71045; 74177; 74181; 74250; 80053; 80074; 81000; 82248; 82784; 83010; 83516; 83615; 83690; 85025; 85027; 96374; 96375; 96376

== ENCOUNTER → 2020-01-02 | Outpatient (CLI) | payer BC ==
[2020-01-02 14:46] LABS: HEMOGLOBIN 14.3 G/DL (13.3-17.7); MEAN PLATELET VOLUME 9.9 FL (7.4-10.4); RED CELL DISTRIBUTION WIDTH 12.8 % (10.0-14.5); WHITE BLOOD COUNT 4.8 10^3/uL (4.3-11.0)
[2020-01-02 14:56] LABS: ALBUMIN 4.4 GM/DL (3.2-4.5)
[2020-01-02 14:57] LABS: CHLORIDE 107 MMOL/L (98-107); POTASSIUM 3.9 MMOL/L (3.6-5.0); SODIUM 141 MMOL/L (135-145)
[2020-01-02 14:58] LABS: CALCIUM 9.4 MG/DL (8.5-10.1)
[2020-01-02 14:59] LABS: GLUCOSE 88 MG/DL (70-105); TOTAL PROTEIN 7.5 GM/DL (6.4-8.2)
[2020-01-02 15:00] LABS: CARBON DIOXIDE 24 MMOL/L (21-32)
[2020-01-02 15:01] LABS: BILIRUBIN,TOTAL 1.2 MG/DL (0.1-1.0)
[2020-01-02 15:02] LABS: ALKALINE PHOSPHATASE 69 U/L (40-136)
[2020-01-02 15:03] LABS: CREATININE SERUM 0.92 MG/DL (0.60-1.30); GFR ESTIMATED > 60
[2020-01-02 15:04] LABS: BUN/CREATININE RATIO 11
[2020-01-02 15:06] LABS: ALANINE AMINOTRANSFERASE 59 U/L (0-55)
== END ==
LOC: LAB 13:48
PROVIDERS: ATTEND Surgery
DX: Z01.89 Encounter for other specified special examinations (principal)
CPT/HCPCS: 36415; 80053; 85027

== ENCOUNTER 2020-02-27 18:14 | Emergency (ER) | payer BC ==
--- NOTE | 2020-02-27 18:18 | NUR ---
THIS RN WAS OUT IN ER ENTRANCE SPEAKING TO ANOTHER PTS FAMILY. PT STOPPED AND LET ME KNOW THAT HE WAS LEAVING AND GOING ELSE WERE BECAUSE WE WERE TAKING TO LONG.
== END 2020-02-27 18:18 | disposition left against medical advice (07) ==
LOC: ER 18:14 → EDUNIT# 18:14 → ER 18:18
DX: H92.02 Otalgia, left ear (principal)

== ENCOUNTER 2022-02-15 20:38 | Emergency (ER) | payer BC ==
[~2022-02-15] VITALS: Ht 185.5 cm; Wt 127.0 kg
[~2022-02-15 20:38] MED LIST changes: +ACET-11; -ACET1TAB43; +CYCL10TA25 PO; -CYCL10TA9 PO
[2022-02-15 20:47] VITALS: BP 131/78
--- NOTE | 2022-02-15 21:04 | ED Upper Extremity ---
General Chief Complaint: Upper Extremity Stated Complaint: R ARM PAIN Nursing Triage Note: C/O INCREASING RIGHT SHOULDER PAIN X2 WEEKS. SEEN AT [facility] 04/09/22 GIVEN RX FOR MUSCLE RELAXER WITHOUT IMPROVEMENT. REPORTS BURNING/SHOOTING PAIN RADIATES DOWN ARM TO FINGERS. DENIES INJURY. History of Present Illness Date Seen by Provider: Feb 15, 2022 Time Seen by Provider: 20:52 Initial Comments 41-year-old male reports right shoulder pain at the AC joint with radicular symptoms going down his arm. He denies a specific injury to his right shoulder. He has had occasional neck pain. He was started on naproxen at [facility] with no improvement in his symptoms. Has tried heat and ice, no help. Previous surgery for labral tear. Onset: last week Severity: moderate Pain/Injury Location: right shoulder Method of Injury: unknown Allergies and Home Medications Allergies Coded Allergies: No Known Drug Allergies (Unverified , 03/06/16) Patient Home Medication List Home Medication List Reviewed: Yes Cyclobenzaprine HCl (Cyclobenzaprine HCl) 10 Mg Tablet, 10 MG PO Q8H PRN for SPASMS Prescribed by: ORTEGA VILLANUEVA on 02/15/222125 Naproxen (Naprosyn) 500 Mg Tablet, 500 MG PO BID Prescribed by: ORTEGA VILLANUEVA on 02/15/222125 Review of Systems Constitutional: no symptoms reported, see HPI Musculoskeletal: see HPI, joint pain (right shoulder) All Other Systems Reviewed Negative Unless Noted: Yes Past Kwpnqdj-Yqimsy-Gzyaqa Hx Patient Social History Tobacco Use?: No Substance use?: No Alcohol Use?: Yes Alcohol Frequency: Once in a while Pt feels they are or have been: No Immunizations Up To Date Tetanus Booster (TDap): Unknown First/Initial COVID19 Vaccinat: NONE Seasonal Allergies Seasonal Allergies: No Past Medical History Surgery/Hospitalization HX: RIGHT SHOULDER, LEFT ARM, CHOLECYSTECTOMY, UMBILICAL HERNIA Surgeries: Yes (LT ARM R/T VASCULAR INSUFFICIENCY, L LEG SET, R SHOULDER, hernia) Gallbladder, Vascular Surgery Respiratory: No Cardiac: No Neurological: Yes (numbness lt anterior thigh x12 years & rt 3-5 fingers for "years") Reproductive Disorders: No Sexually Transmitted Disease: No HIV/AIDS: No Genitourinary: No Gastrointestinal: Yes (UMBILICAL HERNIA SURERY) Gastroesophageal Reflux Musculoskeletal: No Endocrine: No HEENT: No Loss of Vision: Denies Hearing Impairment: Denies Cancer: No Psychosocial: No Integumentary: No Blood Disorders: No Adverse Reaction/Blood Tranf: No (N/A) Family Medical History Reviewed Nursing Family Hx Patient reports no known family medical history. No Pertinent Family Hx Physical Exam Vital Signs Vital Signs - First Documented 02/15/22 20:47 Temp 36.5 Pulse 62 Resp 11 B/P (MAP) 131/78 (95) Pulse Ox 96 O2 Delivery Room Air Capillary Refill : Less Than 3 Seconds Height, Weight, BMI Height: 6'0" Weight: 250lbs. 0.0oz. 113.153760tm; 36.00 BMI Method:Stated General Appearance: WD/WN, no apparent distress Cardiovascular: normal peripheral pulses, regular rate, rhythm Respiratory: chest non-tender, lungs clear, normal breath sounds Shoulder: normal inspection, no evidence of injury, normal ROM, pain (at AC Joint) Elbow/Forearm: normal inspection, non-tender, normal ROM, Right Wrist: Yes normal inspection, Yes non-tender, Yes normal ROM Hand: normal inspection, non-tender, no evidence of injury, normal ROM, Right Neurologic/Tendon: normal sensation, normal motor functions, normal tendon functions Neurologic/Psychiatric: no motor/sensory deficits, alert, normal mood/affect, oriented x 3 Skin: normal color, warm/dry Progress/Results/Core Measures Results/Orders My Orders Orders - ORTEGA VILLANUEVA Shoulder, Right, 3 Views (02/15/22 20:57) Cyclobenzaprine Tablet (Flexeril Tablet) (02/15/22 21:24) Ibuprofen Tablet (Motrin Tablet) (02/15/22 21:24) Vital Signs/I&O 02/15/22 02/15/22 20:47 21:30 Temp 36.5 36.5 Pulse 62 Resp 11 B/P (MAP) 131/78 (95) Pulse Ox 96 O2 Delivery Room Air Blood Pressure Mean: 95 Diagnostic Imaging Diagonstic Imaging: Xray Plain Films/CT/US/NM/MRI: other (right shoulder) Comments NAME: LAMAR GILLISMINAL [facility] MED REC#: [id number] PT STATUS: REG ER : 1980 PHYSICIAN: ORTEGA VILLANUEVA ADMIT DATE: 02/15/22/ER Draft Date of Exam:02/15/22 SHOULDER, RIGHT, 3 VIEWS INDICATION: Right shoulder pain. EXAMINATION: AP, oblique and transscapular views of right shoulder were obtained. FINDINGS: There is narrowing of the glenohumeral joint space with marginal spurring. Prominent spurring and sclerosis is seen along the superior margin of the glenoid process there is mild spurring at the acromioclavicular joint which could result in slight impingement on the underlying rotator cuff. IMPRESSION: Glenohumeral degenerative change with irregularity and sclerosis along the superior margin of the glenoid process. There is also mild spurring at the acromioclavicular joint. Dictated on workstation # [id number] Dict: 02/15/222119 Trans: 02/15/222128 [facility] [id number] Interpreted by: BRYANT WANG MD Electronically signed by: Reviewed: Reviewed by Me Departure Impression Primary Impression: Right shoulder pain Qualified Codes: M25.511 - Pain in right shoulder Disposition: HOME, SELF-CARE Condition: Improved Departure-Patient Inst. Decision time for Depature: 21:15 Referrals: TAYLA SO MD (PCP/Family) Primary Care Physician Patient Instructions: Shoulder Pain (DC) Add. Discharge Instructions: Alternate heat and ice to the right shoulder. Take medications as prescribed. Follow-up with your primary care provider to consider referral to orthopedics or MRI of your right shoulder. Return to the emergency department for new, urgent healthcare needs. All discharge instructions reviewed with patient and/or family. Voiced understanding. Scripts Naproxen (Naprosyn) 500 Mg Tablet 500 MG PO BID, #60 TAB 0 Refills Prov: ORTEGA VILLANUEVA 02/15/22 Cyclobenzaprine HCl (Cyclobenzaprine HCl) 10 Mg Tablet 10 MG PO Q8H PRN for SPASMS, #15 TAB 0 Refills Prov: ORTEGA VILLANUEVA 02/15/22 Copy Copies To 1: TAYLA SO MD, AMY ARNP Feb 15, 2022 21:04
[2022-02-15] MEDS ORDERED: CYCLOBENZAPRINE 10 MG (FLEXERIL) TAB PO STA (21:24)
[2022-02-15] MEDS ORDERED: IBUPROFEN 800 MG (MOTRIN) TAB PO STA (21:24)
[2022-02-15] MEDS ORDERED: CYCL10TA25 PO (21:26)
[2022-02-15] MEDS ORDERED: NAPR-1071 PO (21:26)
--- NOTE | 2022-02-15 21:31 | Diagnostic Imaging Report ---
INDICATION: Right shoulder pain. EXAMINATION: AP, oblique and transscapular views of right shoulder were obtained. FINDINGS: There is narrowing of the glenohumeral joint space with marginal spurring. Prominent spurring and sclerosis is seen along the superior margin of the glenoid process there is mild spurring at the acromioclavicular joint which could result in slight impingement on the underlying rotator cuff. IMPRESSION: Glenohumeral degenerative change with irregularity and sclerosis along the superior margin of the glenoid process. There is also mild spurring at the acromioclavicular joint. Dictated by: Dictated on workstation # [id number]
== END 2022-02-15 21:32 | disposition home or self-care (01) ==
LOC: EDUNIT# 20:38 → ER 20:39
DX: M25.511 Pain in right shoulder (principal); Z98.890 Other specified postprocedural states; Z28.310 Unvaccinated for COVID-19
CPT/HCPCS: 73030